=== PATIENT | male | born 1940 | race Caucasian/White ===

== ENCOUNTER 2016-11-09 08:20 | Outpatient (CLI) | payer MEDICARE, OTHER ==
[2016-11-09 14:35] LABS: CHOL/HDL RATIO 4.1 (<5.0); CHOLESTEROL 118 mg/dL; HDL CHOLESTEROL 29 mg/dL; LDL/HDL RATIO 0.8 (<3.6); TRIGLYCERIDES 332 mg/dL; VLDL CHOLESTEROL 66 mg/dL
== END 2016-11-09 08:21 | disposition home or self-care (01) ==
LOC: LAB.F 08:20
PROVIDERS: ATTEND Internal Medicine Cardiovascular Disease
DX: E78.5 Hyperlipidemia, unspecified (principal)
CPT/HCPCS: 36415; 80061

== ENCOUNTER 2018-05-24 14:48 | Outpatient (CLI) | payer MEDICARE, OTHER ==
--- NOTE | 2018-05-25 11:21 | Ultrasound Report ---
Reason: RETINAL HEMORRHAGE, LEFT EYE Procedure Date: 05/24/2018 Accession Number: [id number] / [id number] Procedure: US - Carotid Doppler Complete CPT Code: FULL RESULT: EXAM: BILATERAL CAROTID AND VERTEBRAL ARTERY DUPLEX DOPPLER ULTRASOUND: EXAM DATE: 05/24/2018 03:11 PM CLINICAL HISTORY: Retinal hemorrhage, left eye. COMPARISON: None. TECHNIQUE: Grayscale imaging, color Doppler, and duplex spectral Doppler were used to evaluate the carotid and vertebral arteries bilaterally. Static images were obtained. FINDINGS: Visually a small amount of predominantly echogenic plaque is seen in the regions of bifurcation bilaterally with a small amount of intimal thickening. No significant plaque is identified in the right or left common or internal carotid arteries. Normal antegrade flow is present in bilateral vertebral arteries. VELOCITIES (cm/sec): Right CCA mid: PSV 56.0 cm/sec CCA dist: PSV 66.7 cm/sec ICA prox: PSV 100 cm/sec, EDV 27.4 cm/sec ICA mid: PSV 82.3 cm/sec, EDV 26.8 cm/sec ICA dist: PSV 119.6 cm/sec, EDV 30.1 cm/sec ECA: PSV 107.8 cm/sec Vert: PSV 38.1 cm/sec ICA/CCA: 1.79 Left CCA mid: PSV 126.2 cm/sec CCA dist: PSV 121 cm/sec ICA prox: PSV 57.5 cm/sec, EDV 19.5 cm/sec ICA mid: PSV 75.6 cm/sec, EDV 24.7 cm/sec ICA dist: PSV 66.7 cm/sec, EDV 17.4 cm/sec ECA: PSV 107.5 cm/sec Vert: PSV 45.7 cm/sec ICA/CCA: 0.6 ICA diameter stenosis: Right: <50% by velocity and <70% by NASCET criteria. Left: <50% by velocity and <70% by NASCET criteria. IMPRESSION: 1. No significant bilateral carotid artery plaquing. 2. In the right carotid artery there are no elevated carotid artery velocities to suggest hemodynamically significant stenosis. 3. In the left carotid artery there are no elevated carotid artery velocities to suggest hemodynamically significant stenosis. 4. Normal antegrade flow is present in bilateral vertebral arteries. General Recommendations: Stenosis =50% ICA - Follow-up ultrasound 6-12 months Stenosis <50% ICA - High Risk Patient with plaque - Follow-up ultrasound 1-2 years Normal Study but High Risk Patient - Follow-up ultrasound 3-5 years Management recommendations and diagnostic criteria are based on current IAC endorsed standards in Carotid Artery Stenosis: Grayscale and Doppler Ultrasound Diagnosis. Validated velocity measurements with angiographic measurements and velocity criteria are extrapolated from diameter data as defined by the Society of Radiologists in Ultrasound Consensus Conference Radiology 2003; 229;340-346. RADIA
== END 2018-05-24 14:49 | disposition home or self-care (01) ==
LOC: DI 14:48
PROVIDERS: ATTEND Ophthalmology
DX: H35.62 Retinal hemorrhage, left eye (principal)
CPT/HCPCS: 93880

== ENCOUNTER 2018-08-15 22:22 | Observation (INO) | payer MEDICARE, OTHER ==
[2018-08-15 22:54] LABS: BASOPHILS # (AUTO) 0.1 10^3/uL (0.0-0.1); BASOPHILS % (AUTO) 1.1 %; EOSINOPHILS # (AUTO) 0.2 10^3/uL (0.0-0.7); EOSINOPHILS % (AUTO) 3.9 %; HGB - HEMOGLOBIN 13.5 g/dL (14.0-18.0); LYMPHOCYTES # (AUTO) 0.5 10^3/uL (1.5-3.5); LYMPHOCYTES % (AUTO) 7.8 %; MEAN CORPUSCULAR HEMOGLOBIN 33.3 pg (27.0-31.0); MEAN CORPUSCULAR HGB CONC 34.5 g/dL (32.0-36.0); MEAN CORPUSCULAR VOLUME 96.3 fL (80.0-94.0); MEAN PLATELET VOLUME 9.5 fL (7.4-11.4); MONOCYTES # (AUTO) 0.5 10^3/uL (0.0-1.0); MONOCYTES % (AUTO) 7.8 %; NEUTROPHILS # (AUTO) 4.9 10^3/uL (1.5-6.6); NEUTROPHILS % (AUTO) 79.4 %; PLT - PLATELET COUNT 54 10^3/uL (130-450); RED BLOOD COUNT 4.06 10^6/uL (4.70-6.10); RED CELL DISTRIBUTION WIDTH 13.4 % (12.0-15.0); WHITE BLOOD COUNT 6.1 x10^3/uL (4.8-10.8)
[2018-08-15 23:02] LABS: ALBUMIN 4.4 g/dL (3.2-5.5); ALBUMIN/GLOBULIN RATIO 1.6 (1.0-2.2); BILIRUBIN,TOTAL 1.1 mg/dL (0.2-1.0); CALCIUM 9.2 mg/dL (8.5-10.3); CREATININE 1.5 mg/dL (0.6-1.2); TOTAL PROTEIN 7.2 g/dL (6.7-8.2)
[2018-08-16 01:12] LABS: BILIRUBIN,URINE NEGATIVE (NEGATIVE); GLUCOSE, URINE (UA) >=1000 mg/dL (NEGATIVE); KETONES,URINE (UA) NEGATIVE (NEGATIVE); LEUKOCYTE ESTERASE, URINE NEGATIVE (NEGATIVE); NITRITE,URINE NEGATIVE (NEGATIVE); OCCULT BLOOD,URINE NEGATIVE (NEGATIVE); PH,URINE 5.5 PH (5.0-7.5); PROTEIN,URINE NEGATIVE (NEGATIVE); UROBILINOGEN,URINE 0.2 (NORMAL) E.U./dL (NORMAL)
[2018-08-16 01:17] LABS: CLARITY,URINE CLEAR (CLEAR)
[2018-08-16] MEDS ORDERED: SODIUM CHLORIDE 0.9% 1,000 ML IV ONE (01:28)
--- NOTE | 2018-08-16 01:31 | ED Physician Documentation ---
PD HPI ABD PAIN - Stated complaint Stated Complaint: ABD PX - Chief complaint Chief Complaint: Abd Pain - History obtained from History obtained from: Patient, Family - History of Present Illness Timing - onset: Today Timing - duration: Hours Timing - details: Abrupt onset, Still present Quality: Sharp, Pain Location: Epigastric Improved by: Laying still Worsened by: Position, Palpation Associated symptoms: Nausea, Vomiting Similar symptoms before: Has not had sx before Recently seen: Not recently seen - Additional information Additional information: 78-year-old male with a history of thrombocytopenia and diabetes has developed acute abdominal pain and bloating after eating. He has a sharp pain that is cramping in nature and comes in waves. The pain is severe. He has not had symptoms similar to this ever. He is nauseated. He has had remote surgery to his appendix which was ruptured with peritonitis. Review of Systems Constitutional: denies: Fever, Chills, Myalgias Eyes: denies: Decreased vision Ears: denies: Ear pain Nose: denies: Rhinorrhea / runny nose, Congestion Throat: denies: Sore throat Cardiac: denies: Chest pain / pressure, Palpitations Respiratory: denies: Dyspnea, Cough GI: reports: Abdominal Pain, Abdominal Swelling, Nausea, Vomiting : denies: Dysuria, Frequency Skin: denies: Rash Musculoskeletal: denies: Neck pain, Back pain Neurologic: denies: Generalized weakness, Focal weakness, Numbness PD PAST MEDICAL HISTORY - Past Medical History Cardiovascular: Hypertension, High cholesterol Respiratory: Asthma Endocrine/Autoimmune: Type 2 diabetes GI: None : Benign prostate hypertrophy, Kidney stones HEENT: None Musculoskeletal: Osteoarthritis - Past Surgical History General: Appendectomy, Colonoscopy - Present Medications Home Medications: Ambulatory Orders Medication Instructions Recorded Confirmed Albuterol Sulfate [Proventil Hfa] 60 puffs IH DAILY PRN 11/18/12 08/15/18 Lisinopril [Zestril] 20 mg PO DAILY 11/18/12 08/15/18 Ranitidine HCl [Zantac 75] 150 mg PO HS 11/18/12 08/15/18 Tamsulosin [Flomax] 0.4 mg PO BID 11/18/12 08/15/18 Budesonide [Pulmicort] 1 puffs INH ONCE PRN 01/01/14 08/15/18 Fluticasone [Flonase] 1 spray INH ONCE PRN 01/01/14 08/15/18 Dhiroyfg-Inohdyr-Nzys 149-Hyal 1 tab ORAL DAILY 01/01/14 08/15/18 [Glucosamine Chondroitin Complx] B12/Levomefolate Calcium/B-6 1 each PO DAILY 04/23/14 08/15/18 [Folbic Rf Tablet] Ascorbic Acid Chew [Vitamin C] 500 mg PO DAILY 12/03/14 08/15/18 Lovastatin 10 mg PO DAILY 09/09/15 08/15/18 Canagliflozin/Metformin HCl 1 each PO DAILY 12/28/16 08/15/18 [Invokamet 150-1,000 mg Tablet] metFORMIN [Glucophage] 1,000 mg PO BID 08/15/18 08/15/18 - Allergies Allergies/Adverse Reactions: Allergies Allergy/AdvReac Type Severity Reaction Status Date / Time No Known Drug Allergies Allergy Verified 08/15/18 22:29 - Social History Smoking Status: Never smoker PD ED PE NORMAL - Vitals Vital signs reviewed: Yes (hypertensive mild) - General General: Alert and oriented X 3, No acute distress, Well developed/nourished - HEENT HEENT: Atraumatic, PERRL, EOMI - Neck Neck: Supple, no meningeal sign - Cardiac Cardiac: RRR, No murmur - Respiratory Respiratory: No respiratory distress, Clear bilaterally - Abdomen Abdomen: Soft, Other (The abdomen is distended and generally tender. Bowel sounds are tinkling. ) - Back Back: No CVA TTP, No spinal TTP - Derm Derm: Normal color, Warm and dry, No rash - Extremities Extremities: No deformity, No edema - Neuro Neuro: Alert and oriented X 3, transportation aide 2-12 intact, No motor deficit, No sensory deficit, Normal speech Eye Opening: Spontaneous Motor: Obeys Commands Verbal: Oriented GCS Score: 15 - Psych Psych: Normal mood, Normal affect Results - Vitals Vitals: Vital Signs - 24 hr 08/15/18 08/16/18 22:25 00:59 Temperature 36.5 C 36.2 C L Heart Rate 59 L 86 Respiratory 16 14 Rate Blood Pressure 145/60 H 122/52 L O2 Saturation 98 96 Oxygen O2 Source Room air - Labs Labs: Laboratory Tests 08/15/18 08/15/18 08/16/18 22:40 22:40 00:45 WBC 6.1 RBC 4.06 L Hgb 13.5 L Hct 39.1 L MCV 96.3 H MCH 33.3 H MCHC 34.5 RDW 13.4 Plt Count 54 L MPV 9.5 Neut # (Auto) 4.9 Lymph # (Auto) 0.5 L Maverick # (Auto) 0.5 Eos # (Auto) 0.2 Baso # (Auto) 0.1 Absolute Nucleated RBC 0.00 Nucleated RBC % 0.0 Sodium 139 Potassium 4.4 Chloride 102 Carbon Dioxide 26 Anion Gap 11.0 BUN 22 H Creatinine 1.5 H Estimated GFR (MDRD) 46 L Glucose 236 H Calcium 9.2 Total Bilirubin 1.1 H AST 23 ALT 40 Alkaline Phosphatase 57 Total Protein 7.2 Albumin 4.4 Globulin 2.8 Albumin/Globulin Ratio 1.6 Lipase 121 H Urine Color YELLOW Urine Clarity CLEAR Urine pH 5.5 Ur Specific [place] 1.010 Urine Protein NEGATIVE Urine Glucose (UA) >=1000 H Urine Ketones NEGATIVE Urine Occult Blood NEGATIVE Urine Nitrite NEGATIVE Urine Bilirubin NEGATIVE Urine Urobilinogen 0.2 (NORMAL) Ur Leukocyte Esterase NEGATIVE Ur Microscopic Review NOT INDICATED Urine Culture Comments NOT INDICATED - Rads (name of study) CT abd/pel with Radiology: Prelim report reviewed (Impression: 1. Mid small bowel obstruction with transition in the right paramedian upper pelvis, probably due to an adhesion. Mild mesenteric edema. 2 Abnormal pancreatic body and tail with ductal dilation and/or small cystic foci measuring up to 2 cm. No definite obstructing solid mass seen and this may be related to previous episode of inflammation and postinflammatory stricturing. Nonemergent follow-up with pancreatic MRI MRCP suggested for follow-up within the next 6 months. 3 Cholelithiasis.4 Cardiomegaly and severe coronary calcifications. 5Moderately enlarged prostate with median lobe hypertrophy indenting into the inferior aspect of the bladder. 6 Moderate atherosclerotic disease in the aorta and branches. 7 Suspect ankylosing spondylitis.), EMP read indepedently, See rad report PD MEDICAL DECISION MAKING - ED course Complexity details: reviewed results, re-evaluated patient, considered differential, d/w patient, d/w family, d/w customer service and sales consultant (Mcguire surgery recommends NG tube, analgesia and fluids. ) ED course: 78-year-old diabetic male on Jardiance who appears dehydrated on initial evaluation and who has an elevated lipase seems initially to have some improvement in his pain. However after he returns from CT scan he is vomiting pain continues and it is obvious that he has not resolved his illness in the time he has been waiting here in the emergency department. He appears to have bowel obstruction secondary to adhesions and he has remote history of peritonitis in the area of obstruction. Departure - Departure Disposition: 66 [facility] DC/Hiren Clinical Impression: Small bowel obstruction
[2018-08-16] MEDS ORDERED: IOVERSOL 320 100 ML VIAL IVP ONE ×2 (01:49→02:08)
--- NOTE | 2018-08-16 02:34 | CT Report ---
Reason: epigastric pain Procedure Date: 08/16/2018 Accession Number: [id number] / [id number] Procedure: CT - Abdomen/Pelvis W CPT Code: FULL RESULT: EXAM: CT ABDOMEN AND PELVIS EXAM DATE: 08/16/2018 02:09 AM. CLINICAL HISTORY: Epigastric pain. COMPARISONS: ABD-DIFFICULT 01/09/2014 8:24 AM. TECHNIQUE: Routine helical CT imaging was performed through the abdomen and pelvis. IV contrast: Yes. Enteric contrast: No. Reconstructions: Coronal and sagittal. In accordance with CT protocol optimization, one or more of the following dose reduction techniques were utilized for this exam: automated exposure control, adjustment of mA and/or KV based on patient size, or use of iterative reconstructive technique. FINDINGS: Lung Bases: Global cardiomegaly. Severe coronary calcifications. Liver: Unremarkable. No suspicious masses. Gallbladder/Bile Ducts: Tiny calcified gallstone, otherwise unremarkable. Spleen: Unremarkable. Pancreas: Cystic foci and/or ductal dilatation in the pancreatic body and tail measuring up to 2.3 x 1.4 cm on image 30 series 4. No definite solid mass. No inflammatory process seen. Adrenal Glands: Unremarkable. Kidneys: Unremarkable. No suspicious masses or hydronephrosis. Peritoneal Cavity/Bowel: Mid small bowel obstruction with transition in the right paramedian upper pelvis, probably due to an adhesion. Mild mesenteric edema adjacent to the dilated loops of proximal bowel. No gross bowel wall thickening or free air. Pelvic Organs: Moderately enlarged prostate with median lobe hypertrophy indenting into the inferior aspect of the bladder. The bladder otherwise appears unremarkable. Vasculature: Moderate atherosclerotic disease of the aorta and branches. No aneurysm seen. Bones: No acute or aggressive appearing abnormality. Diffuse bridging syndesmophyte/osteophytes throughout the thoracic spine. Moderate L5-S1 disk level degenerative changes. Partial ankylosis of the sacroiliac joints. Other: None. IMPRESSION: 1. Mid small bowel obstruction with transition in the right paramedian upper pelvis, probably due to an adhesion. Mild mesenteric edema. 2. Abnormal pancreatic body and tail with ductal dilatation and/or small cystic foci measuring up to 2 cm. No definite obstructing solid mass seen and this may be related to previous episodes of inflammation and post-inflammatory stricturing. Nonemergent follow-up pancreatic MRI/MRCP suggested for follow-up within the next 6 months. 3. Cholelithiasis. 4. Cardiomegaly and severe coronary calcifications. 5. Moderately enlarged prostate with median lobe hypertrophy indenting into the inferior aspect of the bladder. 6. Moderate atherosclerotic disease of the aorta and branches. 7. Suspect ankylosing spondylitis. RADIA
[2018-08-16] MEDS ORDERED: ONDANSETRON 4 MG/2 ML VIAL IVP STA (02:48)
[2018-08-16] MEDS ORDERED: HYDROmorphone 1 MG/ML CARPUJECT IVP STA (02:48)
[2018-08-16] MEDS ORDERED: ONDANSETRON 4 MG/2 ML VIAL IVP PRN (03:10)
[2018-08-16] MEDS ORDERED: SODIUM CHLORIDE FLUSH 0.9% 10 ML SYRINGE IVP PRN (03:10)
--- NOTE | 2018-08-16 03:40 | HISTORY & PHYSICAL EXAMINATION ---
Chief Complaint - Chief Complaint Chief Complaint: abdominal pain History of Present Illness - Admitted From Admitted From:: [facility] ED - History Obtained From Records Reviewed: yes History obtained from: patient and spouse - History of Present Illness HPI Comment/Other: Patient seen on 08/16/18 at 03:30 am Patient is a 78 y/o male who presented to the ED with complain of mid-abdominal pain which started around 8:30pm on 08/15/18 shortly after dinner. He describes it a a fluctuating in intensity but currently rated at a 10/10. He denies any previous occurence. Work up in the ED included a CT of the abd/pelvis which showed a mild small bowel obstruction. His last bowel movement was around lunch time on 08/15/18. He denies chest pain, GRICELDA, fever or chills. He vomited once upon presentation to the ED. As a result of his presentation, he is being admitted for further management. Dr Viet Mcguire (General Surgery) was consulted by the ED. History - Past Medical History Cardiovascular: reports: Hypertension, High cholesterol, Coronary artery disease Respiratory: reports: Asthma Endocrine/Autoimmune: reports: Type 2 diabetes GI: reports: None : reports: Benign prostate hypertrophy, Kidney stones HEENT: reports: None Musculoskeletal: reports: Osteoarthritis MRSA Hx?: No Other Past Medical History: Thrombocytopenia - Past Surgical History General: reports: Appendectomy, Colonoscopy Cardiovascular: reports: Coronary stent - Family & Social History Family History: Mother: , CVA/TIA (mother: massive CVA in her 70's), Diabetes, Type 2, Hypertension (Extensive family history of hypertension), Father: , Cancer (prostate cancer: at 102), Other family: Hypertension Family History Comment/Other: Has 9 siblings Living arrangement: At home Living Situation: With spouse/s.o. Social History Notes: Denies Hx of alcohol, tobacco or illicit drug use - POLST Patient has POLST: No POLST Status: Full Code Meds/Allgy - Home Medications Home Medications: Ambulatory Orders Medication Instructions Recorded Confirmed Albuterol Sulfate [Proventil Hfa] 60 puffs IH DAILY PRN 11/18/12 08/15/18 Lisinopril [Zestril] 20 mg PO DAILY 11/18/12 08/15/18 Ranitidine HCl [Zantac 75] 150 mg PO HS 11/18/12 08/15/18 Tamsulosin [Flomax] 0.4 mg PO BID 11/18/12 08/15/18 Budesonide [Pulmicort] 1 puffs INH ONCE PRN 01/01/14 08/15/18 Fluticasone [Flonase] 1 spray INH ONCE PRN 01/01/14 08/15/18 Awqxiscs-Culqiep-Bkxt 149-Hyal 1 tab ORAL DAILY 01/01/14 08/15/18 [Glucosamine Chondroitin Complx] B12/Levomefolate Calcium/B-6 1 each PO DAILY 04/23/14 08/15/18 [Folbic Rf Tablet] Ascorbic Acid Chew [Vitamin C] 500 mg PO DAILY 12/03/14 08/15/18 Lovastatin 10 mg PO DAILY 09/09/15 08/15/18 Canagliflozin/Metformin HCl 1 each PO DAILY 12/28/16 08/15/18 [Invokamet 150-1,000 mg Tablet] metFORMIN [Glucophage] 1,000 mg PO BID 08/15/18 08/15/18 - Allergies Allergies/Adverse Reactions: Allergies Allergy/AdvReac Type Severity Reaction Status Date / Time No Known Drug Allergies Allergy Verified 08/15/18 22:29 Review of Systems - Constitutional Constitutional: denies: Chills, Malaise, Weakness - Eyes Eyes: denies: Blurred vision, Vision loss, Dipolpia - Ears, Nose & Throat Ears, Nose & Throat: denies: Tinnitus, Vertigo, Sore throat - Cardiovascular Cariovascular: denies: Irregular heart rate, Palpitations, Chest pain, Edema, Lightheadedness, Syncope, Exertional dyspnea - Respiratory Respiratory: denies: Sputum production, Wheezing, SOB at rest, SOB with exertion - Gastrointestinal Gastrointestinal: reports: Abdominal pain, Nausea, Vomiting. denies: Abdominal distention, Constipation, Diarrhea, Black stools - Genitourinary Genitourinary: denies: Dysuria, Frequency, Urgency, Hematuria - Musculoskeletal Musculoskeletal: denies: Muscle pain, Back pain, Muscle aches, Stiffness - Integumentary Integumentary: denies: Rash, Pruritis, Lesions, Dryness - Neurological Neurological: denies: General weakness, Focal weakness, Headache, Dizziness, Numbness - Psychiatric Psychiatric: denies: Depression, Anxiety - Endocrine Endocrine: denies: Polyuria, Polydypsia - Hematologic/Lymphatic Hematologic/Lymphatic: reports: Bleeding tendencies (chronic thrombocytopenia). denies: Anemia, Bruising Prior Level of Functionality: Patient is independent of activities of daily living Exam - Vital Signs Vital Signs: Vital Signs x48h Temp Pulse Resp BP Pulse Ox 08/16/18 00:59 36.2 C L 86 14 122/52 L 96 08/15/18 22:25 36.5 C 59 L 16 145/60 H 98 - Physical Exam General Appearance: positive: Alert, Moderate distress Eyes Bilateral: positive: Normal inspection, PERRL, EOMI ENT: positive: ENT inspection nml, No signs of dehydration Neck: positive: Nml inspection, No JVD, Trachea midline Respiratory: positive: Chest non-tender, No respiratory distress, Breath sounds nml. negative: Wheezes, Rales, Rhonchi Cardiovascular: positive: Regular rate & rhythm, No murmur Abdomen: positive: Nml bowel sounds, No distention, Tenderness. negative: Guarding, Rebound Back: positive: Nml inspection Skin: positive: Color nml Extremities: positive: Non-tender, Full ROM, Nml appearance Neurologic/Psychiatric: positive: Oriented x3, CN's nml (2-12), Motor nml, Sensation nml Conclusion/Plan - Problem List (1) Small bowel obstruction Conclusion/Plan: Mild. NPO. Iv hydration. Pain management Will not do NG tube due to platelet count of 54. Will consider gastrograffin challenge later today Dr Viet Mcguire (Gen Surg) was consulted by the ED (2) Type II diabetes mellitus Conclusion/Plan: Will hold metformin. On jardance Accu checks SSI (3) Hyperlipidemia Conclusion/Plan: On atorvastatin (4) Hx of coronary artery disease Conclusion/Plan: s/p pI w/ stents Onplavix and metoprolol (5) Thrombocytopenia Conclusion/Plan: Sees Dr Fish at the [facility]. Last seen 08/15/18. Patient stable. No active change at the moment - Lab Results Fish Bones: 08/15/18 22:40 08/15/18 22:40 Core Measures - Anticipated LOS I expect patient to be DC'd or transferred within 96 hours.: Yes - DVT/VTE - Prophylaxis VTE/DVT Device ordered at admit?: Yes Not Ordered - Medical Reason: Contraindicated (plt 54)
[2018-08-16] MEDS ORDERED: SODIUM CHLORIDE 0.9% 1,000 ML IV SCH (04:00)
[2018-08-16] MEDS: SODIUM CHLORIDE FLUSH 0.9% 10 ML SYRINGE IVP SCH ×2 (04:33→07:07)
[2018-08-16] MEDS ORDERED: MORPHINE 2 MG/ML SYRINGE IVP PRN (05:00)
[2018-08-16 05:58] LABS: BASOPHILS % (AUTO) 0.4 %; EOSINOPHILS % (AUTO) 0.2 %; HGB - HEMOGLOBIN 12.7 g/dL (14.0-18.0); LYMPHOCYTES # (AUTO) 0.2 10^3/uL (1.5-3.5); LYMPHOCYTES % (AUTO) 2.5 %; MEAN CORPUSCULAR HEMOGLOBIN 33.5 pg (27.0-31.0); MEAN CORPUSCULAR HGB CONC 34.2 g/dL (32.0-36.0); MEAN CORPUSCULAR VOLUME 97.8 fL (80.0-94.0); MEAN PLATELET VOLUME 8.9 fL (7.4-11.4); MONOCYTES # (AUTO) 0.4 10^3/uL (0.0-1.0); NEUTROPHILS # (AUTO) 9.1 10^3/uL (1.5-6.6); NEUTROPHILS % (AUTO) 92.9 %; PLT - PLATELET COUNT 49 10^3/uL (130-450); RED BLOOD COUNT 3.79 10^6/uL (4.70-6.10); RED CELL DISTRIBUTION WIDTH 13.8 % (12.0-15.0); WHITE BLOOD COUNT 9.8 x10^3/uL (4.8-10.8)
[2018-08-16] MEDS ORDERED: INSULIN REGULAR HUMAN 100 UNIT/1 ML 10 ML MDV SUBQ SCH ×2 (06:00→07:00)
[2018-08-16 06:08] LABS: CALCIUM 8.6 mg/dL (8.5-10.3); CREATININE 1.3 mg/dL (0.6-1.2)
[2018-08-16] MEDS ORDERED: PANTOPRAZOLE 40 MG VIAL IVP SCH (07:00)
[2018-08-16] MEDS ORDERED: POLYETHYLENE GLYCOL 3350 17 GM PACKET PO SCH (09:00)
[2018-08-16] MEDS ORDERED: DIATR MEGLU/DIATRIZOATE SODIUM 120 ML BOTTLE PO SCH (10:04)
--- NOTE | 2018-08-16 13:13 | XRAY Report ---
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 COMPARISON: None. TECHNIQUE: 2 views. FINDINGS: Overlying ECG leads somewhat limit evaluation. Lung Bases: Unremarkable. Bowel Gas Pattern: Within normal limits. No dilated loops or abnormal fluid levels. Gas is seen in small and large bowel, nonobstructive bowel gas pattern. Free Air: Cannot be effectively evaluated on supine views. Other: Contrast is seen within the bladder. IMPRESSION: Normal abdominal radiograph. RADIA
--- NOTE | 2018-08-16 13:14 | XRAY Report ---
Reason: SBO- IMMEDIATE IMAGE Procedure Date: 08/16/2018 Accession Number: [id number] / [id number] Procedure: XR - No-Charge 1V Abdomen CPT Code: 30597 FULL RESULT: EXAM: ABDOMEN RADIOGRAPHY EXAM DATE: 08/16/2018 12:52 PM. CLINICAL HISTORY: Small bowel obstruction - immediate image. COMPARISON: None. TECHNIQUE: 2 views. FINDINGS: Lung Bases: Unremarkable. Bowel Gas Pattern: Within normal limits. No dilated loops or abnormal fluid levels. Contrast is seen in the stomach, duodenum and proximal jejunum. Gas is again noted in the large bowel. Free Air: None. Other: None. IMPRESSION: No obstruction. RADIA
[2018-08-16] MEDS ORDERED: CLOPIDOGREL 75 MG TABLET PO SCH (13:32)
[2018-08-16] MEDS: INSULIN ASPART 300 UNIT/3 ML PEN SUBQ SCH ×2 (13:41→17:47)
[2018-08-16 15:25] LABS: HB2 TOTAL 12.7 g/dL; HEMOGLOBIN A1C 0.87 g/dL; HEMOGLOBIN A1C % 8.4 % (4.6-6.2)
--- NOTE | 2018-08-16 15:46 | Discharge Plan ---
Discharge Plan Disposition: 01 Home, Self Care Condition: Good Prescriptions: Wheat Dextrin [Benefiber] 1 each PO DAILY #30 packet Diet: Soft Activity Restrictions: Activity as Tolerated Shower Restrictions: No Weight Bearing: Full Weight Health Concerns: Underlying cardiac disease, but you are well taken care of by your specialist. Plan of Treatment: To prevent such episodes, avoid un-chewed nuts, raw or uncooked vegetables, stick wit soft foods. Care Goals: Goals are to prevent recurrence, so maintain a healthy diet, take daily bene- fiber, stay active each day (walking). Additional Instructions or Follow Up instructions: You were admitted for a small bowel obstruction that was noted on imaging. You underwent a gastro-grafin challenge which showed a resolution of this condition. A general surgery consult was made, with Dr. Viet Mcguire. I spoke to him and he suggests the above diet restrictions with daily benefiber. Please follow up with your PCP within one week. No Smoking: If you smoke, Please STOP! Call for help. Follow-up with: Maged Oliver MD [Primary Care Provider] -
--- NOTE | 2018-08-16 17:24 | XRAY Report ---
Reason: SBO- 4 HOUR FILM Procedure Date: 08/16/2018 Accession Number: [id number] / [id number] Procedure: XR - No-Charge 1V Abdomen CPT Code: 85505 FULL RESULT: EXAM: ABDOMEN RADIOGRAPHY EXAM DATE: 08/16/2018 04:56 PM. CLINICAL HISTORY: SBO- 4 HOUR FILM. COMPARISON: NO CHARGE 1V ABDOMEN 08/16/2018 12:10 PM. TECHNIQUE: One view, 4 hour images after given oral Gastrografin. FINDINGS: Contrast is seen throughout the colon and into the rectum. There is contrast seen in small bowel loops in the right side of the abdomen and in the lower abdomen and pelvis. No dilated bowel loops are seen. IMPRESSION: Contrast is seen in the colon. No evidence for small bowel obstruction. No dilated bowel loops are seen. RADIA
--- NOTE | 2018-08-16 18:15 | DISCHARGE SUMMARY ---
"Discharge Summary Admit Date: 08/16/18 Discharge Date: 08/16/18 Discharging Provider: BLAYNE Pike Primary Care Provider: Maged Oliver Code Status: Attempt Resuscitation Condition at Discharge: Good Discharge Disposition: 01 Home, Self Care - DIAGNOSES Admission Diagnoses: Small bowel obstruction Type II diabetes mellitus Hyperlipidemia Hx of coronary artery disease Thrombocytopenia Discharge Diagnoses with Status of Each Condition: Small bowel obstruction- resolved after a Gastro-grafin challenge Abdominal pain- resolved Type II diabetes mellitus- chronic, stable Hyperlipidemia- chronic, stable Hx of coronary artery disease -chronic, stable Thrombocytopenia-chronic, stable BPH -chronic, stable GERD -chronic, stable COPD -chronic, stable constipation- improved, continue daily benefiber at home stented coronary artery-chronic, stable - HPI History of Present Illness: HPI per Dr. Watkins: Patient seen on 08/16/18 at 03:30 am Patient is a 78 y/o male who presented to the ED with complain of mid-abdominal pain which started around 8:30pm on 08/15/18 shortly after dinner. He describes it a a fluctuating in intensity but currently rated at a 10/10. He denies any previous occurence. Work up in the ED included a CT of the abd/pelvis which showed a mild small bowel obstruction. His last bowel movement was around lunch time on 08/15/18. He denies chest pain, GRICELDA, fever or chills. He vomited once upon presentation to the ED. As a result of his presentation, he is being admitted for further management. Dr Viet Mcguire (General Surgery) was consulted by the ED. - CONSULTS | PROCEDURES Consultations: General surgery- Dr. Viet Mcguire Procedures: None, gastro-grafin challenge with resolution of condition. - HOSPITAL COURSE Hospital Course: The patient had a full resolution of his SBO both on imaging and on physical exam. He no longer had abdominal pain. He was tolerating meals, and moving his bowels upon discharge. It was recommended that he continue to use Benefiber daily to prevent further episodes and avoid raw veggies. He was medically stable and discharged home with his . - ALLERGIES Allergies/Adverse Reactions: Allergies Allergy/AdvReac Type Severity Reaction Status Date / Time No Known Drug Allergies Allergy Verified 08/15/18 22:29 - MEDICATIONS Home Medications: Ambulatory Orders Medication Instructions Recorded Confirmed Albuterol Sulfate [Proventil Hfa 1 puffs PO DAILY PRN 11/18/12 08/16/18 Inhaler] Lisinopril [Zestril] 20 mg PO DAILY 11/18/12 08/16/18 Tamsulosin [Flomax] 0.4 mg PO BID 11/18/12 08/16/18 metFORMIN [Glucophage] 1,000 mg PO BID 08/15/18 08/16/18 Ascorbic Acid [Vitamin C] 1,000 mg PO DAILY 08/16/18 08/16/18 Aspirin [Aspirin EC] 81 mg PO DAILY 08/16/18 08/16/18 Atorvastatin Calcium 40 mg PO DAILY PM 08/16/18 08/16/18 Budesonide [Pulmicort] 1 puffs INH DAILY 08/16/18 08/16/18 Clopidogrel [Plavix] 75 mg PO DAILY 08/16/18 08/16/18 Cyanocobalamin (Vitamin B-12) 1,000 mcg PO DAILY 08/16/18 08/16/18 [Vitamin B-12] Empagliflozin [Jardiance] 25 mg PO DAILY 08/16/18 08/16/18 Fexofenadine HCl [Erica Allergy] 180 mg PO DAILY PRN 08/16/18 08/16/18 Fexofenadine HCl [Erica Allergy] 180 mg PO DAILY PRN 08/16/18 08/16/18 Fluticasone [Flonase] 1 puffs PO DAILY PRN 08/16/18 08/16/18 Glucos Sul 2Kcl/MSM/Chond/C/Mn 1 cap PO DAILY 08/16/18 08/16/18 [Glucosamine Chondroitin Cap] Metoprolol Succinate 25 mg PO DAILY 08/16/18 08/16/18 Wheat Dextrin [Benefiber] 1 each PO DAILY #30 packet 08/16/18 amLODIPine [Norvasc] 5 mg PO DAILY PM 08/16/18 08/16/18 - PHYSICAL EXAM AT DISCHARGE General Appearance: positive: No acute distress, Alert Eyes Bilateral: positive: PERRL ENT: positive: Pharynx nml, No signs of dehydration Neck: positive: Thyroid nml, No JVD, Trachea midline Respiratory: positive: Chest non-tender, No respiratory distress, Breath sounds nml Cardiovascular: positive: Regular rate & rhythm, No gallop, Systolic murmur Peripheral Pulses: positive: 2+ Abdomen: positive: Non-tender, Nml bowel sounds, Hepatomegaly, Other (rounded, firm-baseline, ) Back: positive: Nml inspection Skin: positive: Color nml, No rash, Warm, Dry Extremities: positive: Non-tender, Full ROM, Nml appearance, No pedal edema Neurologic/Psychiatric: positive: Oriented x3, CN's nml (2-12), Motor nml, Sensation nml, Mood/affect nml Reflexes: Bicep (R): 3+, Bicep (L): 3+ - LABS Result Diagrams: 08/16/18 05:44 08/16/18 05:44 - FOLLOW UP Follow Up: See your PCP within one week, return to the ED if you have more abdominal pain. Continue daily benefiber. NO need to follow with Dr. Viet Mcguire, General surgery. - TIME SPENT Time Spent in Discharge (Minutes): 45"
[2018-08-16 18:20] VITALS: BP 156/57
[2018-08-16] MEDS ORDERED: metFORMIN 500 MG TABLET PO SCH (21:00)
[2018-08-16] MEDS ORDERED: ATORVASTATIN 40 MG TABLET PO SCH (21:00)
[2018-08-16] MEDS ORDERED: amLODIPine 5 MG TABLET PO SCH (21:00)
[2018-08-16] MEDS ORDERED: TAMSULOSIN 0.4 MG CAPSULE PO SCH (21:00)
[2018-08-17] MEDS ORDERED: METOPROLOL SUCCINATE 25 MG TABLET PO SCH (09:00)
[2018-08-17] MEDS ORDERED: GLUCOS SUL PO SCH (09:00)
[2018-08-17] MEDS ORDERED: CLOPIDOGREL 75 MG TABLET PO SCH (09:00)
[2018-08-17] MEDS ORDERED: [UNRECOGNIZED DRUG - OTHER] PO SCH (09:00)
[2018-08-17] MEDS ORDERED: BUDESONIDE 0.5 MG/2 ML NEB INH SCH (09:00)
[2018-08-17] MEDS ORDERED: EMPAGLIFLOZIN 25 MG PO SCH (09:00)
[2018-08-17] MEDS ORDERED: LISINOPRIL 20 MG TABLET PO SCH (09:00)
[2018-08-17] MEDS ORDERED: ASCORBIC ACID CHEW 500 MG TABLET PO SCH (09:00)
[2018-08-17] MEDS ORDERED: ASPIRIN EC 81 MG TABLET PO SCH (09:00)
[2018-08-17] MEDS ORDERED: ALBUTEROL NEB 2.5 MG/3 ML INH PRN (09:00)
[2018-08-17] MEDS ORDERED: CYANOCOBALAMIN 500 MCG TABLET PO SCH (09:00)
== END 2018-08-16 18:50 | disposition home or self-care (01) ==
LOC: ED 22:22 → MS2 08-16 03:11
PROVIDERS: ADMIT Internal Medicine; ATTEND Nurse Practitioner
DX: K56.609 Unspecified intestinal obstruction, unspecified as to partial versus complete obstruction (principal); E86.0 Dehydration; E11.9 Type 2 diabetes mellitus without complications; E78.5 Hyperlipidemia, unspecified; I25.10 Atherosclerotic heart disease of native coronary artery without angina pectoris; D69.6 Thrombocytopenia, unspecified; N40.0 Benign prostatic hyperplasia without lower urinary tract symptoms; K21.9 Gastro-esophageal reflux disease without esophagitis; J44.9 Chronic obstructive pulmonary disease, unspecified; K59.00 Constipation, unspecified; I10 Essential (primary) hypertension; M19.90 Unspecified osteoarthritis, unspecified site; K80.20 Calculus of gallbladder without cholecystitis without obstruction; R94.8 Abnormal results of function studies of other organs and systems; I70.0 Atherosclerosis of aorta; Z95.5 Presence of coronary angioplasty implant and graft; Z79.51 Long term (current) use of inhaled steroids; Z79.84 Long term (current) use of oral hypoglycemic drugs; Z87.442 Personal history of urinary calculi; D53.9 Nutritional anemia, unspecified; K76.0 Fatty (change of) liver, not elsewhere classified; Z79.02 Long term (current) use of antithrombotics/antiplatelets; R53.83 Other fatigue; Z79.899 Other long term (current) drug therapy; Z79.82 Long term (current) use of aspirin
CPT/HCPCS: 36415; 74177; 74250; 80048; 80053; 81003; 83036; 83690; 85025; 96361; 96374; 96375; 99214; 99284; 99285; A9270; G0378; G0463; J1170; J1815; Q9963; Q9967; 74018; 81001; 87086; 99211

== ENCOUNTER 2019-02-06 10:38 | Outpatient (CLI) | payer MEDICARE, OTHER ==
--- NOTE | 2019-02-06 12:56 | XRAY Report ---
Reason: OPEN BITE OF HAND Procedure Date: 02/06/2019 Accession Number: [id number] / [id number] Procedure: XRS - Hand 3 View RT CPT Code: Final Report FULL RESULT: EXAM: RIGHT HAND RADIOGRAPHY EXAM DATE: 02/06/2019 11:13 AM. CLINICAL HISTORY: OPEN BITE OF HAND. COMPARISON: XR Hand 3 views 06/09/2006 11:59 AM images and report from 06/09/2006.. TECHNIQUE: 3 views. FINDINGS: Bones: Normal. No fractures or bone lesions. Joints: Significant arthritic changes at the first CMC joint, third MCP joint and the IP joints. This is old. Soft Tissues: Vascular calcifications. IMPRESSION: 1. Some vascular calcifications. Significant arthritic change at the first CMC joint. Third MCP joint and IP joints also show some osteoarthritic change. 2. No evidence for radiopaque foreign material or soft tissue gas. No fractures. RADIA
--- NOTE | 2019-02-06 12:56 | XRAY Report ---
Reason: OPEN BITE OF RIGHT HAND Procedure Date: 02/06/2019 Accession Number: [id number] / [id number] Procedure: XRS - Wrist 4 View RT CPT Code: Final Report FULL RESULT: EXAM: RIGHT WRIST RADIOGRAPHY EXAM DATE: 02/06/2019 11:13 AM. CLINICAL HISTORY: Open bite of right hand. COMPARISON: HAND 3 VIEW RT 02/06/2019 11:19 AM XR HAND MIN 3 VIEWS 06/09/2006 11:59 AM images and report from [facility].. TECHNIQUE: 3 views. FINDINGS: Bones: Normal. No fractures or bone lesions. Joints: First CMC joint and radioscaphoid joint shows a moderate amount of arthritic change. There has been some progression since 2006. Soft Tissues: Some soft tissue swelling, no soft tissue gas. Benign vascular calcifications are present. IMPRESSION: 1. First CMC joint and radioscaphoid joints show moderate amount of osteoarthritic change. There has been some progression since the 2006 study. 2. Soft tissue swelling, no soft tissue gas. Benign-appearing vascular calcifications are present. RADIA
== END 2019-02-06 10:39 | disposition home or self-care (01) ==
LOC: DI.S 10:38
PROVIDERS: ATTEND Nurse Practitioner Family
DX: S61.451A Open bite of right hand, initial encounter (principal); M19.041 Primary osteoarthritis, right hand; M18.11 Unilateral primary osteoarthritis of first carpometacarpal joint, right hand; M19.031 Primary osteoarthritis, right wrist

== ENCOUNTER 2019-02-07 12:12 | Emergency (ER) | payer MEDICARE, OTHER ==
--- NOTE | 2019-02-07 13:37 | ED Physician Documentation ---
PD HPI ANIMAL BITE - Stated complaint Stated Complaint: R ARM INJURY - Chief complaint Chief Complaint: Wound - History obtained from History obtained from: Patient - History of Present Illness Location of injury(ies): Right hand Details of the event: Dog, Bite, Pet animal, Well appearing, Provoked, Animal can be observed Timing - onset: How many days ago (3) Timing - duration: Days (onset of redness and swelling day after bite (2 days ago) and seen in office yesterday with Rx of Augmentin. Patient says the progression of the redness halted but had not receded yet. Seen f/u in office today and referred to ER for "IV abx" since was still very red. Had xray in office without FB/fracture.) Timing - details: Gradual onset, Still present Improved by: Rest Worsened by: Moving, Palpating Associated symptoms: Swelling, Discolored. No: Weakness, Numbness Contributing factors: No: Immunocompromised Similar symptoms before: Has not had sx before Recently seen: Clinic Review of Systems Constitutional: denies: Fever, Chills, Myalgias GI: denies: Nausea, Vomiting Skin: reports: Lesions (puncture to dorsum hand near 2nd head) Neurologic: denies: Focal weakness, Numbness PD PAST MEDICAL HISTORY - Past Medical History Cardiovascular: Hypertension, High cholesterol Respiratory: Asthma Endocrine/Autoimmune: Type 2 diabetes GI: None : Benign prostate hypertrophy, Kidney stones HEENT: None Musculoskeletal: Osteoarthritis - Past Surgical History General: Appendectomy, Colonoscopy Ortho: Other Cardiovascular: Coronary stent - Present Medications Home Medications: Ambulatory Orders Medication Instructions Recorded Confirmed Albuterol Sulfate [Proventil Hfa 1 puffs PO DAILY PRN 11/18/12 08/16/18 Inhaler] Lisinopril [Zestril] 20 mg PO DAILY 11/18/12 08/16/18 Tamsulosin [Flomax] 0.4 mg PO BID 11/18/12 08/16/18 metFORMIN [Glucophage] 1,000 mg PO BID 08/15/18 08/16/18 Ascorbic Acid [Vitamin C] 1,000 mg PO DAILY 08/16/18 08/16/18 Aspirin [Aspirin EC] 81 mg PO DAILY 08/16/18 08/16/18 Atorvastatin Calcium 40 mg PO DAILY PM 08/16/18 08/16/18 Budesonide [Pulmicort] 1 puffs INH DAILY 08/16/18 08/16/18 Clopidogrel [Plavix] 75 mg PO DAILY 08/16/18 08/16/18 Cyanocobalamin (Vitamin B-12) 1,000 mcg PO DAILY 08/16/18 08/16/18 [Vitamin B-12] Empagliflozin [Jardiance] 25 mg PO DAILY 08/16/18 08/16/18 Fexofenadine HCl [Erica Allergy] 180 mg PO DAILY PRN 08/16/18 08/16/18 Fexofenadine HCl [Erica Allergy] 180 mg PO DAILY PRN 08/16/18 08/16/18 Fluticasone [Flonase] 1 puffs PO DAILY PRN 08/16/18 08/16/18 Glucos Sul 2Kcl/MSM/Chond/C/Mn 1 cap PO DAILY 08/16/18 08/16/18 [Glucosamine Chondroitin Cap] Metoprolol Succinate 25 mg PO DAILY 08/16/18 08/16/18 Wheat Dextrin [Benefiber] 1 each PO DAILY #30 packet 08/16/18 amLODIPine [Norvasc] 5 mg PO DAILY PM 08/16/18 08/16/18 - Allergies Allergies/Adverse Reactions: Allergies Allergy/AdvReac Type Severity Reaction Status Date / Time No Known Drug Allergies Allergy Verified 08/15/18 22:29 - Social History Does the pt smoke?: No Smoking Status: Never smoker Does the pt drink ETOH?: No Does the pt have substance abuse?: No - Immunizations Immunizations are current?: No Immunizations: TDAP >10years/unknown - POLST Patient has POLST: No POLST Status: Full Code PD ED PE NORMAL - Vitals Vital signs reviewed: Yes - General General: Alert and oriented X 3, No acute distress, Well developed/nourished - Cardiac Cardiac: RRR, No murmur - Respiratory Respiratory: Clear bilaterally - Derm Derm: Warm and dry, Other (right hand with redness and swelling dorsum, most ac utely at area of dogbite tooth puncture. Redness extends dorsum hand/wrsit to mid forearm. ) - Extremities Extremities: Other (stiff flex/ext of fingers due to swelling. He does not feel pain in forearm with finger movement. Normal color and cap refill in fingers. ) - Neuro Neuro: Alert and oriented X 3, No motor deficit, No sensory deficit, Normal speech Results - Vitals Vitals: Vital Signs - 24 hr 02/07/19 02/07/19 02/07/19 12:21 13:55 15:08 Temperature 37.2 C 37.3 C 37.3 C Heart Rate 71 54 L 66 Respiratory 18 18 22 Rate Blood Pressure 144/61 H 138/53 H 130/59 L O2 Saturation 94 98 97 02/07/19 15:59 Temperature Heart Rate 67 Respiratory 17 Rate Blood Pressure 130/62 O2 Saturation 98 Oxygen O2 Source Room air - Labs Labs: Laboratory Tests 02/07/19 02/07/19 14:00 14:00 WBC 10.1 RBC 3.66 L Hgb 12.2 L Hct 36.7 L MCV 100.3 H MCH 33.3 H MCHC 33.2 RDW 12.6 Plt Count 49 L MPV 12.1 H Neut # (Auto) 8.5 H Lymph # (Auto) 0.4 L Rusk # (Auto) 1.0 Eos # (Auto) 0.1 Baso # (Auto) 0.1 Absolute Nucleated RBC 0.00 Nucleated RBC % 0.0 Sodium 138 Potassium 4.2 Chloride 103 Carbon Dioxide 26 Anion Gap 9.0 BUN 23 H Creatinine 1.6 H Estimated GFR (MDRD) 42 L Glucose 267 H Calcium 8.9 - Rads (name of study) hand CT Radiology: Prelim report reviewed, Discussed with rads (loked at films with me. No signs of abscess, joint nor tendon involvement. No air in tissues. ), See rad report PD MEDICAL DECISION MAKING - ED course Complexity details: reviewed results (No deep structure involvement apparent at this time. ), re-evaluated patient, considered differential (concern for abscess or involvement to joint or tendons. Can get CT. He says the redness/swelling had not worsened since yesterday, so the abx Rx likely were starting to work ("putting on the brakes" of the infection progression). Can still give IV dose here and include some staph coverage. Most likely Pasteurella with the onset/progression. ), d/w patient Departure - Departure Disposition: 01 Home, Self Care Clinical Impression: Cellulitis of hand excluding fingers Dog bite, hand Qualifiers: Encounter type: initial encounter Laterality: right Qualified Code(s): S61.451A - Open bite of right hand, initial encounter Condition: Stable Record reviewed to determine appropriate education?: Yes Instructions: ED Infec Skin Cellulitis Follow-Up: Maged Oliver MD [Primary Care Provider] - Comments: Continue the current oral antibiotic twice daily. Elevate wrap and less use of the hand and wrist to help reduce swelling. Follow-up with your primary care in 1 to 2 days for recheck. Return to the ER tomorrow if this has not improved at all or is worsening. Return if general system symptoms such as fevers vomiting or general weakness. Your CT scan does not show any signs of abscess or involvement of the tendons or joint. Discharge Date/Time: 02/07/19 16:23
[2019-02-07] MEDS ORDERED: cefTRIAXone 1 GM VIAL IVP STA (13:56)
[2019-02-07] MEDS ORDERED: CLINDAMYCIN 600 MG/50 ML 50 ML IV ONE (13:56)
[2019-02-07] MEDS ORDERED: SODIUM CHLORIDE 0.9% 1,000 ML IV ONE (13:57)
[2019-02-07 14:18] LABS: BASOPHILS # (AUTO) 0.1 10^3/uL (0.0-0.1); BASOPHILS % (AUTO) 0.6 %; EOSINOPHILS # (AUTO) 0.1 10^3/uL (0.0-0.7); EOSINOPHILS % (AUTO) 1.2 %; HGB - HEMOGLOBIN 12.2 g/dL (14.0-18.0); LYMPHOCYTES # (AUTO) 0.4 10^3/uL (1.5-3.5); LYMPHOCYTES % (AUTO) 3.6 %; MEAN CORPUSCULAR HEMOGLOBIN 33.3 pg (27.0-31.0); MEAN CORPUSCULAR HGB CONC 33.2 g/dL (32.0-36.0); MEAN CORPUSCULAR VOLUME 100.3 fL (80.0-94.0); MEAN PLATELET VOLUME 12.1 fL (7.4-11.4); MONOCYTES % (AUTO) 10.3 %; NEUTROPHILS # (AUTO) 8.5 10^3/uL (1.5-6.6); NEUTROPHILS % (AUTO) 83.8 %; PLT - PLATELET COUNT 49 10^3/uL (130-450); RED BLOOD COUNT 3.66 10^6/uL (4.70-6.10); RED CELL DISTRIBUTION WIDTH 12.6 % (12.0-15.0); WHITE BLOOD COUNT 10.1 x10^3/uL (4.8-10.8)
[2019-02-07 14:33] LABS: CALCIUM 8.9 mg/dL (8.5-10.3); CREATININE 1.6 mg/dL (0.6-1.2)
[2019-02-07] MEDS ORDERED: IOVERSOL 320 100 ML VIAL IVP ONE ×2 (14:39→18:00)
--- NOTE | 2019-02-07 15:47 | CT Report ---
Reason: right hand dogbite; eval abscess/tenosyn Procedure Date: 02/07/2019 Accession Number: [id number] / [id number] Procedure: CT - UPPER EXTREMITY W - RT CPT Code: Final Report FULL RESULT: EXAM: RIGHT UPPER EXTREMITY CT WITH CONTRAST EXAM DATE: 02/07/2019 03:10 PM. CLINICAL HISTORY: Right hand dog bite; evaluate abscess/tenosynovitis. Hand and wrist pain. COMPARISON: X-rays of the hand and wrist from 02/06/2019 images and report what may be general. TECHNIQUE: Thin-section axial images were acquired of the upper extremity from the distal forearm to the fingers after administration of intravenous contrast. IV contrast: 80 mL Optiray 320, no reaction. Post-processing: Coronal and sagittal reformats. Other: None. In accordance with CT protocol optimization, one or more of the following dose reduction techniques were utilized for this exam: automated exposure control, adjustment of mA and/or KV based on patient size, or use of iterative reconstructive technique. FINDINGS: Bones: No fracture or bone lesion. No primitive or destructive changes. Joints: Significant osteoarthritic narrowing is seen at the second and third MCP joint, fourth PIP joint, first MCP joint and first IP joint. Musculature: Normal. No fatty atrophy. Other: Focal fluid collection at the dorsal aspect of the hand over the second MCP joint is 1.2 x 1.1 cm transversely and extends for a cephalocaudal distance of 2.2 cm. Series 4 image 151, series 13 image 47. Some surrounding streaking and stranding changes are also identified. This is adjacent to but appears separate from the second extensor mechanism. IMPRESSION: 1. There is a focal abscess over the dorsal aspect of the hand at the second MCP joint which is 1.2 x 1.1 cm transversely and extends for a cephalocaudal distance of 2.2 cm. Surrounding cellulitis is also present. This is adjacent to but does not appear to involve the second extensor mechanism. 2. Significant osteoarthritic change at the second and third MCP joint, first IP joint, fourth PIP joint and first MCP joint. RADIA
[2019-02-07 16:00] VITALS: BP 130/62
== END 2019-02-07 16:23 | disposition home or self-care (01) ==
LOC: ED 12:12
DX: L03.113 Cellulitis of right upper limb (principal); S61.451A Open bite of right hand, initial encounter; W54.0XXA Bitten by dog, initial encounter; I10 Essential (primary) hypertension; E11.9 Type 2 diabetes mellitus without complications; Z79.84 Long term (current) use of oral hypoglycemic drugs; Z79.02 Long term (current) use of antithrombotics/antiplatelets; Z79.82 Long term (current) use of aspirin
CPT/HCPCS: 36415; 73201; 80048; 85025; 96361; 96365; 96375; 99284; Q9967

== ENCOUNTER 2019-04-01 12:44 | Outpatient (CLI) | payer MEDICARE, OTHER ==
--- NOTE | 2019-04-02 00:57 | Ultrasound Report ---
Reason: BENIGN PROSTATIC HYPERTROPHY W/O OVERFLOW OBSTRUCT Procedure Date: 04/01/2019 Accession Number: [id number] / [id number] Procedure: US - Bladder CPT Code: Final Report FULL RESULT: EXAM: PELVIS ULTRASOUND, LIMITED EXAM DATE: 04/01/2019 03:13 PM. CLINICAL HISTORY: BENIGN PROSTATIC HYPERTROPHY W/O OVERFLOW OBSTRUCT. COMPARISON: None. TECHNIQUE: Real-time scanning was performed with static images obtained. FINDINGS: Bladder: The initial bladder volume was 254 mL. A 73.1 mL postvoid residual bladder volume is noted. Bilateral ureteral jets documented. Normal wall thickness. No masses evident. Other: Prostate measures 3.5 x 4 x 4.2 cm. Volume: 30.8 mL IMPRESSION: Mild bladder postvoid residual volume for age measuring 73.1 mL. RADIA
== END 2019-04-01 12:45 | disposition home or self-care (01) ==
LOC: DI 12:44
PROVIDERS: ATTEND Family Medicine
DX: N40.0 Benign prostatic hyperplasia without lower urinary tract symptoms (principal)
CPT/HCPCS: 76857

== ENCOUNTER 2020-07-30 09:29 | Outpatient (CLI) | payer MEDICARE, OTHER ==
[2020-07-30 10:14] LABS: ALBUMIN 4.2 g/dL (3.2-5.5); ALBUMIN/GLOBULIN RATIO 1.7 (1.0-2.2); BILIRUBIN,TOTAL 1.1 mg/dL (0.2-1.0); CREATININE 1.2 mg/dL (0.6-1.2); POTASSIUM 4.8 mmol/L (3.5-5.0); TOTAL PROTEIN 6.7 g/dL (6.7-8.2); URIC ACID 7.2 mg/dL (2.6-7.2)
[2020-07-30 10:30] LABS: CHOL/HDL RATIO 3.6 (<5.0); CHOLESTEROL 91 mg/dL; HDL CHOLESTEROL 25 mg/dL; LDL CHOLESTEROL,CALCULATED 32 mg/dL; LDL/HDL RATIO 1.3 (<3.6); TRIGLYCERIDES 170 mg/dL; VLDL CHOLESTEROL 34 mg/dL
== END 2020-07-30 09:30 | disposition home or self-care (01) ==
LOC: LAB 09:29
PROVIDERS: ATTEND Physician Assistant
DX: E78.5 Hyperlipidemia, unspecified (principal); M10.9 Gout, unspecified
CPT/HCPCS: 36415; 80053; 80061; 83721; 84550

== ENCOUNTER 2021-08-26 10:26 | Outpatient (CLI) | payer MEDICARE, OTHER ==
[2021-08-26 10:47] LABS: CALCIUM 9.2 mg/dL (8.5-10.3); CREATININE 1.4 mg/dL (0.6-1.2); POTASSIUM 4.5 mmol/L (3.5-5.0)
[2021-08-26 10:51] LABS: CREATININE,URINE 40.9 mg/dL; MICROALBUM/CREATININE RATIO,UR 26.9 ug/mg (<30.0); MICROALBUMIN,URINE 1.1 mg/dL (0-300.0)
[2021-08-26 11:57] LABS: ESTIMATED AVERAGE GLUCOSE 209 mg/dL (70-100); HEMOGLOBIN A1c% 8.9 % (4.27-6.07)
== END 2021-08-26 10:27 | disposition home or self-care (01) ==
LOC: LAB 10:26
PROVIDERS: ATTEND Registered Nurse
DX: E11.9 Type 2 diabetes mellitus without complications (principal)
CPT/HCPCS: 36415; 80048; 82043; 82570; 83036

== ENCOUNTER 2022-01-07 16:18 | Emergency (ER) | payer MEDICARE, OTHER ==
[2022-01-07 16:51] LABS: BASOPHILS # (AUTO) 0.1 10^3/uL (0.0-0.1); BASOPHILS % (AUTO) 1.2 %; EOSINOPHILS # (AUTO) 0.2 10^3/uL (0.0-0.7); HCT - HEMATOCRIT 40.8 % (42.0-52.0); HGB - HEMOGLOBIN 13.6 g/dL (14.0-18.0); LYMPHOCYTES # (AUTO) 0.6 10^3/uL (1.5-3.5); LYMPHOCYTES % (AUTO) 9.6 %; MEAN CORPUSCULAR HEMOGLOBIN 32.5 pg (27.0-31.0); MEAN CORPUSCULAR HGB CONC 33.3 g/dL (32.0-36.0); MEAN CORPUSCULAR VOLUME 97.6 fL (80.0-94.0); MEAN PLATELET VOLUME 12.1 fL (7.4-11.4); MONOCYTES # (AUTO) 0.6 10^3/uL (0.0-1.0); MONOCYTES % (AUTO) 10.4 %; NEUTROPHILS # (AUTO) 4.5 10^3/uL (1.5-6.6); NEUTROPHILS % (AUTO) 75.5 %; PLT - PLATELET COUNT 65 10^3/uL (130-450); RED BLOOD COUNT 4.18 10^6/uL (4.70-6.10); RED CELL DISTRIBUTION WIDTH 13.1 % (12.0-15.0)
[2022-01-07 17:10] LABS: ALBUMIN 4.8 g/dL (3.2-5.5); ALBUMIN/GLOBULIN RATIO 1.7 (1.0-2.2); BILIRUBIN,TOTAL 0.9 mg/dL (0.2-1.0); CALCIUM 9.3 mg/dL (8.5-10.3); CREATININE 1.4 mg/dL (0.6-1.2); POTASSIUM 4.3 mmol/L (3.5-5.0); TOTAL PROTEIN 7.7 g/dL (6.7-8.2)
[2022-01-07] MEDS ORDERED: SODIUM CHLORIDE 0.9% 1,000 ML IV STA (19:19)
[2022-01-07] MEDS ORDERED: ONDANSETRON 4 MG/2 ML VIAL IVP STA (19:19)
[2022-01-07] MEDS ORDERED: HYDROmorphone 1 MG/ML CARPUJECT IVP STA (19:19)
--- NOTE | 2022-01-07 19:20 | ED Physician Documentation ---
History of Present Illness - Stated complaint Stated Complaint: ABD PX - Chief complaint Chief Complaint: Abd Pain - Additonal information Additional information: 81-year-old male presents emergency department for evaluation of mid abdominal pain that began this afternoon after eating lunch. He describes the pain as severe and he was sweating. It is since subsided but he does have a history of peritonitis, and small bowel obstruction secondary to adhesions and he is concerned that he could have a small bowel obstruction today. He reports that he has had daily bowel movements and quite often uses Metamucil. He is followed by hematology oncology for history of thrombocytopenia as well as anemia. Past medical history also includes hypertension BPH, hyperlipidemia Review of Systems Constitutional: reports: Reviewed and negative Throat: reports: Reviewed and negative Cardiac: reports: Reviewed and negative Respiratory: reports: Reviewed and negative GI: reports: Abdominal Pain, Nausea. denies: Vomiting, Constipation, Diarrhea : reports: Reviewed and negative Skin: reports: Reviewed and negative PD PAST MEDICAL HISTORY - Past Medical History Cardiovascular: Hypertension, High cholesterol Respiratory: Asthma Endocrine/Autoimmune: Type 2 diabetes GI: None : Benign prostate hypertrophy, Kidney stones HEENT: None Musculoskeletal: Osteoarthritis - Past Surgical History General: Appendectomy, Colonoscopy Ortho: Other Cardiovascular: Coronary stent - Present Medications Home Medications: Ambulatory Orders Medication Instructions Recorded Confirmed Albuterol Sulfate [Proventil Hfa 1 puffs PO DAILY PRN 11/18/12 08/11/21 Inhaler] Tamsulosin [Flomax] 0.4 mg PO BID 11/18/12 08/11/21 lisinopriL [Zestril] 20 mg PO DAILY 11/18/12 08/11/21 metFORMIN [Glucophage] 1,000 mg PO BID 08/15/18 08/11/21 Ascorbic Acid [Vitamin C] 1,000 mg PO DAILY 08/16/18 08/11/21 Aspirin [Aspirin EC] 162 mg PO DAILY 08/16/18 08/11/21 Atorvastatin Calcium 40 mg PO DAILY PM 08/16/18 08/11/21 Budesonide [Pulmicort] 1 puffs INH DAILY 08/16/18 08/11/21 Clopidogrel [Plavix] 75 mg PO DAILY 08/16/18 08/11/21 Cyanocobalamin (Vitamin B-12) 1,000 mcg PO DAILY 08/16/18 08/11/21 [Vitamin B-12] Empagliflozin [Jardiance] 25 mg PO DAILY 08/16/18 08/11/21 Fexofenadine HCl [Erica Allergy] 180 mg PO DAILY PRN 08/16/18 08/11/21 Fluticasone [Flonase] 1 puffs PO DAILY PRN 08/16/18 08/11/21 Glucos Sul 2Kcl/MSM/Chond/C/Mn 1 cap PO DAILY 08/16/18 08/11/21 [Glucosamine Chondroitin Cap] Metoprolol Succinate 25 mg PO DAILY 08/16/18 08/11/21 Wheat Dextrin [Benefiber] 1 each PO DAILY #30 packet 08/16/18 08/11/21 amLODIPine [Norvasc] 5 mg PO DAILY PM 08/16/18 08/11/21 Glipizide [Glipizide ER] 5 mg PO BID 08/11/21 08/11/21 - Allergies Allergies/Adverse Reactions: Allergies Allergy/AdvReac Type Severity Reaction Status Date / Time No Known Drug Allergies Allergy Verified 01/07/22 16:34 - Social History Does the pt smoke?: No Smoking Status: Never smoker Does the pt drink ETOH?: No Does the pt have substance abuse?: No - Immunizations Immunizations are current?: No Immunizations: TDAP >10years/unknown - POLST Patient has POLST: No POLST Status: Full Code PD ED PE NORMAL - General General: Alert and oriented X 3, No acute distress - HEENT HEENT: Atraumatic, Moist mucous membranes - Neck Neck: Supple, no meningeal sign - Cardiac Cardiac: RRR, No murmur - Respiratory Respiratory: No respiratory distress, Clear bilaterally - Abdomen Abdomen: Normal bowel sounds, Soft. No: Non tender (Generalized abdominal tenderness mostly mid abdomen. Nonperitoneal. Large lower ventral midline incision well-healed and approximated.), Non distended (Mildly distended with tympany) - Derm Derm: Normal color, Warm and dry - Neuro Neuro: Alert and oriented X 3 Eye Opening: Spontaneous Motor: Obeys Commands Verbal: Oriented GCS Score: 15 Results - Vitals Vitals: Vital Signs - 24 hr 01/07/22 01/07/22 01/07/22 16:30 19:35 20:44 Temperature 36.6 C Heart Rate 65 62 64 Respiratory 14 16 14 Rate Blood Pressure 150/74 H 131/63 H 158/74 H O2 Saturation 97 96 95 Oxygen O2 Source Room air - Labs Labs: Laboratory Tests 01/07/22 01/07/22 01/07/22 16:36 16:46 16:46 WBC 6.0 RBC 4.18 L Hgb 13.6 L Hct 40.8 L MCV 97.6 H MCH 32.5 H MCHC 33.3 RDW 13.1 Plt Count 65 L MPV 12.1 H Neut # (Auto) 4.5 Lymph # (Auto) 0.6 L [place] # (Auto) 0.6 Eos # (Auto) 0.2 Baso # (Auto) 0.1 Absolute Nucleated RBC 0.00 Nucleated RBC % 0.0 Sodium 138 Potassium 4.3 Chloride 102 Carbon Dioxide 26 Anion Gap 10.0 BUN 26 H Creatinine 1.4 H Estimated GFR (MDRD) 49 L Glucose 281 H Calcium 9.3 Total Bilirubin 0.9 AST 31 ALT 51 Alkaline Phosphatase 69 Total Protein 7.7 Albumin 4.8 Globulin 2.9 Albumin/Globulin Ratio 1.7 Lipase 59 H Urine Color YELLOW Urine Clarity CLEAR Urine pH 6.0 Ur Specific [place] 1.010 Urine Protein NEGATIVE Urine Glucose (UA) >=1000 H Urine Ketones NEGATIVE Urine Occult Blood NEGATIVE Urine Nitrite NEGATIVE Urine Bilirubin NEGATIVE Urine Urobilinogen 0.2 (NORMAL) Ur Leukocyte Esterase NEGATIVE Ur Microscopic Review NOT INDICATED Urine Culture Comments NOT INDICATED - Rads (name of study) CT ABD Radiology: Final report received (Cholelithiasis without acute cholecystitis. Cystic lesion within the pancreatic tail. Consider nonemergent pancreatic protocol MRI. Patchy ground black glass opacity within the lung bases likely represent atelectasis. However atypical pneumonia not ruled out.) PD MEDICAL DECISION MAKING - ED course Complexity details: reviewed results, re-evaluated patient, considered differential, d/w patient ED course: 81-year-old male who has a history of diabetes, hypertension hyperlipidemia and chronic kidney disease presents the emergency department for evaluation of mid abdominal pain that began after lunch. This gentleman does have a history of previous appendectomy as well as peritonitis and small bowel obstructions secondary to adhesions. The bowel obstructions have previously been managed conservatively. CBC today was without acute worrisome findings. Electrolytes do show chronic but unchanged kidney disease. No abnormalities with liver function test. His abdominal exam was mildly tender. Nonperitoneal. A CT of the abdomen was completed. We do make note of cholelithiasis without findings of acute cholecystitis. There is a cystic lesion within pancreatic tail that is unchanged from previous imaging. However pancreatic protocol MRI would be advised as an outpatient. There were some patchy groundglass opacities within the lung bases likely representing atelectasis. Atypical pneumonia was not ruled out. The patient has not had any cough, fevers or leukocytosis therefore we will defer any treatment for pneumonia as its not clinically suspected. I did discuss the CT imaging findings with the patient and his . They are very worried about being discharged without a clear diagnosis for the cause of belly pain however he appears remarkably well and has otherwise been stable. He is tolerating sips of clear liquids. I recommend clear liquids for the next 24 hours and slowly advancing the diet. They will follow-up closely with his primary care doctor for further evaluation and to obtained a liver pancreas protocol MRI. Emergent return precautions discussed Departure - Departure Disposition: 01 Home, Self Care Clinical Impression: Pancreatic abnormality, Gallstones Abdominal pain Qualifiers: Abdominal location: unspecified location Qualified Code(s): R10.9 - Unspecified abdominal pain Condition: Stable Record reviewed to determine appropriate education?: Yes Instructions: ED Abdominal Pain Unkn Cause Male Comments: Christopher came to the emergency department today because he developed some pain across his mid abdomen after eating lunch. The labs today show no worrisome findings with regards to his blood count. He does have some chronic kidney disease which is stable and unchanged. The CT does show some gallstones but no findings to suggest acute cholecystitis. We do make note of a cystic lesion near the pancreatic tail that is unchanged from previous imaging. However this should be discussed with his primary care doctor. He should be referred for an outpatient pancreatic protocol MRI for further evaluation of this. We are not certain what the cause of the abdominal pain was today. I do recommend clear liquids for the next 12 to 24 hours. As pain is gently improving he can begin advancing his diet with bananas, rice, applesauce and toast. He should return immediately to the ER should he develop uncontrolled vomiting, black or bloody stools, severe chest pain or any shortness of air.
[2022-01-07 19:26] LABS: BILIRUBIN,URINE NEGATIVE (NEGATIVE); GLUCOSE, URINE (UA) >=1000 mg/dL (NEGATIVE); KETONES,URINE (UA) NEGATIVE (NEGATIVE); LEUKOCYTE ESTERASE, URINE NEGATIVE (NEGATIVE); NITRITE,URINE NEGATIVE (NEGATIVE); OCCULT BLOOD,URINE NEGATIVE (NEGATIVE); PROTEIN,URINE NEGATIVE (NEGATIVE); UROBILINOGEN,URINE 0.2 (NORMAL) E.U./dL (NORMAL)
[2022-01-07 19:27] LABS: CLARITY,URINE CLEAR (CLEAR)
--- NOTE | 2022-01-07 21:08 | CT Report ---
PROCEDURE: ABDOMEN/PELVIS WO INDICATIONS: epigastric pain TECHNIQUE: Noncontrast 5 mm thick sections acquired from the diaphragms to the symphysis. 5 mm coronal and sagi ttal reformats were then performed. For radiation dose reduction, the following was used: automated exposure control, adjustment of mA and/or kV according to patient size. COMPARISON: CT abdomen pelvis 08/16/2018. FINDINGS: Image quality: Excellent. Lung bases:There are patchy indistinct groundglass opacities within the lung bases which are nonspec ific but likely represent atelectasis.. Heart: Heart size is enlarged. ABDOMEN: Liver:Noncontrast evaluation of the liver demonstrates no mass lesion. Gallbladder:Multiple clustered calcified gallstones are demonstrated within the gallbladder. No gall bladder wall thickening or pericholecystic fluid. Biliary ducts: No biliary ductal dilatation. Pancreas:There is a cystic lesion within the pancreatic tail measuring approximately 2.0 x 1.2 cm in transverse dimension on series 3 image 27 which appears similar in size compared to the prior study given differences in technique. There is also suspected mild dilatation of the pancreatic duct within the pancreatic body but evaluation is limited in the absence of intravenous contrast. No peripancrea tic fat stranding or fluid collections. Spleen: Normal in size. Adrenal Glands: No adrenal nodules. Kidneys and Ureters: No hydronephrosis. Stomach and Bowel: Stomach, small bowel loops, and colon are normal in caliber and wall thickness. N o pericecal inflammatory changes to suggest appendicitis. Peritoneum: No abnormal intraperitoneal fluid. No free air. Ventral Wall: No hernia. Abdominal Nodes: No retroperitoneal or mesenteric adenopathy by size criteria. Vessels: Aorta and inferior vena cava are normal in size. PELVIS: Pelvic Organs:Multiple clustered calcifications are demonstrated in the prostate measures are nonspe cific but likely dystrophic. Bladder: Unremarkable. Pelvic Nodes: No enlarged lymph nodes. Miscellaneous: No inguinal hernias are seen. Bones: Visualized osseous structures demonstrate no suspicious focal lesions. IMPRESSION: 1. Cholelithiasis without CT evidence of acute cholecystitis. 2. Cystic lesion within the pancreatic tail and suspected mild dilatation of the pancreatic duct in t he pancreatic body appears similar to the prior study given differences in technique. The findings ma y reflect possible intraductal papillary mucinous neoplasms (IPMN) or mucinous cystic neoplasms but a re incompletely characterized on the current study. Consider follow-up nonemergent evaluation with a pancreatic protocol MRI if clinically indicated. 3. Patchy ground glass opacities within the lung bases likely represent atelectasis. However, the dif ferential includes pulmonary edema, atypical pneumonia, or inflammatory process such as hypersensitiv ity pneumonitis. Reviewed by: Austyn Hubbard MD on 01/07/2022 9:07 PM PST Approved by: Austyn Hubbard MD on 01/07/2022 9:07 PM PST Station ID: [id number]
[2022-01-07] MEDS ORDERED: PROCHLORPERAZINE 10 MG/2 ML VIAL IVP STA (21:48)
[2022-01-07] MEDS ORDERED: ONDANSETRON ODT 4 MG Prepack 2 TL PRN (23:12)
[2022-01-07 23:26] VITALS: BP 145/65
--- NOTE | 2022-01-26 10:52 | ED Physician Documentation ---
ED Addendum - Addendum Addendum: 01/26/22 10:50 Patient was ready for discharge after evaluation, testing, and discharge planning by BENITA Mcguire. However, patient vomited just prior to being discharged and thus he is held in ED until he can tolerate PO. On my reevaluation, he is in NAD and tolerating PO. He is comfortable with d/c home. The test results, diagnoses, discharge plan, and return precautions had all been reviewed with patient by BENITA Mcguire. Patient requests zofran to take home and he is given a take-home pack of zofran which I ordered.
== END 2022-01-07 23:20 | disposition home or self-care (01) ==
LOC: ED 16:18
DX: K80.20 Calculus of gallbladder without cholecystitis without obstruction (principal); R94.8 Abnormal results of function studies of other organs and systems
CPT/HCPCS: 36415; 74176; 80053; 81003; 83690; 85025; 96374; 96375; 99284; J1170; 81001; 87086

== ENCOUNTER 2022-03-25 08:37 | Emergency (ER) | payer MEDICARE, OTHER ==
[2022-03-25 09:14] LABS: BILIRUBIN,URINE NEGATIVE (NEGATIVE); CLARITY,URINE CLEAR (CLEAR); GLUCOSE, URINE (UA) >=1000 mg/dL (NEGATIVE); KETONES,URINE (UA) NEGATIVE (NEGATIVE); LEUKOCYTE ESTERASE, URINE NEGATIVE (NEGATIVE); NITRITE,URINE NEGATIVE (NEGATIVE); OCCULT BLOOD,URINE NEGATIVE (NEGATIVE); PROTEIN,URINE NEGATIVE (NEGATIVE); UROBILINOGEN,URINE 0.2 (NORMAL) E.U./dL (NORMAL)
[2022-03-25 09:29] LABS: BASOPHILS # (AUTO) 0.1 10^3/uL (0.0-0.1); BASOPHILS % (AUTO) 0.8 %; EOSINOPHILS # (AUTO) 0.1 10^3/uL (0.0-0.7); HCT - HEMATOCRIT 40.4 % (42.0-52.0); HGB - HEMOGLOBIN 13.4 g/dL (14.0-18.0); LYMPHOCYTES # (AUTO) 0.5 10^3/uL (1.5-3.5); LYMPHOCYTES % (AUTO) 7.5 %; MEAN CORPUSCULAR HEMOGLOBIN 32.2 pg (27.0-31.0); MEAN CORPUSCULAR HGB CONC 33.2 g/dL (32.0-36.0); MEAN CORPUSCULAR VOLUME 97.1 fL (80.0-94.0); MEAN PLATELET VOLUME 11.6 fL (7.4-11.4); MONOCYTES # (AUTO) 0.5 10^3/uL (0.0-1.0); MONOCYTES % (AUTO) 7.7 %; NEUTROPHILS % (AUTO) 81.5 %; PLT - PLATELET COUNT 65 10^3/uL (130-450); RED BLOOD COUNT 4.16 10^6/uL (4.70-6.10); RED CELL DISTRIBUTION WIDTH 13.1 % (12.0-15.0); WHITE BLOOD COUNT 6.1 x10^3/uL (4.8-10.8)
[2022-03-25 09:42] LABS: ALBUMIN 4.3 g/dL (3.2-5.5); ALBUMIN/GLOBULIN RATIO 1.6 (1.0-2.2); BILIRUBIN,TOTAL 1.2 mg/dL (0.2-1.0); CALCIUM 8.6 mg/dL (8.5-10.3); CREATININE 1.3 mg/dL (0.6-1.2); POTASSIUM 4.1 mmol/L (3.5-5.0)
--- NOTE | 2022-03-25 10:12 | ED Physician Documentation ---
PD HPI ABD PAIN - Stated complaint Stated Complaint: ABD PX/VOMIT - Chief complaint Chief Complaint: Abd Pain - History obtained from History obtained from: Patient - History of Present Illness Timing - onset: How many days ago (he has had several days of left flank pain, unchanged with movement nor position. Feeling similar to prior kidney stones. It increased significantly last night into today.) Timing - details: Gradual onset (with marked worsening last night into today.), Still present Quality: Cramping, Aching, Pain Location: LLQ Radiation: Left flank Improved by: No: Eating, Laying still, Position Worsened by: No: Eating, Moving, Breathing, Position, Palpation Associated symptoms: Nausea, Loss of appetite. No: Fever, Vomiting, Diarrhea, Constipation, Dysuria Similar symptoms before: Diagnosis (feels similar to few prior ureteral kidney stones, all have passed without needing intervention.) Recently seen: Not recently seen Review of Systems Constitutional: denies: Fever, Chills Nose: denies: Rhinorrhea / runny nose, Congestion Throat: denies: Sore throat Cardiac: denies: Chest pain / pressure, Palpitations Respiratory: denies: Dyspnea, Cough GI: reports: Abdominal Pain, Nausea. denies: Vomiting, Diarrhea : denies: Dysuria Skin: denies: Rash, Lesions Musculoskeletal: denies: Extremity swelling Neurologic: denies: Focal weakness, Numbness PD PAST MEDICAL HISTORY - Past Medical History Cardiovascular: Hypertension, High cholesterol Respiratory: Asthma Endocrine/Autoimmune: Type 2 diabetes GI: None : Benign prostate hypertrophy, Kidney stones HEENT: None Musculoskeletal: Osteoarthritis - Past Surgical History General: Appendectomy, Colonoscopy Ortho: Other Cardiovascular: Coronary stent - Present Medications Home Medications: Ambulatory Orders Medication Instructions Recorded Confirmed Albuterol Sulfate [Proventil Hfa 1 puffs PO DAILY PRN 11/18/12 02/11/22 Inhaler] Tamsulosin [Flomax] 0.4 mg PO BID 11/18/12 02/11/22 lisinopriL [Zestril] 20 mg PO DAILY 11/18/12 02/11/22 metFORMIN [Glucophage] 1,000 mg PO BID 08/15/18 02/11/22 Ascorbic Acid [Vitamin C] 1,000 mg PO DAILY 08/16/18 02/11/22 Aspirin [Aspirin EC] 162 mg PO DAILY 08/16/18 02/11/22 Atorvastatin Calcium 40 mg PO DAILY PM 08/16/18 02/11/22 Budesonide [Pulmicort] 1 puffs INH DAILY 08/16/18 02/11/22 Clopidogrel [Plavix] 75 mg PO DAILY 08/16/18 02/11/22 Cyanocobalamin (Vitamin B-12) 1,000 mcg PO DAILY 08/16/18 02/11/22 [Vitamin B-12] Empagliflozin [Jardiance] 25 mg PO DAILY 08/16/18 02/11/22 Fexofenadine HCl [Erica Allergy] 180 mg PO DAILY PRN 08/16/18 02/11/22 Fluticasone [Flonase] 1 puffs PO DAILY PRN 08/16/18 02/11/22 Glucos Sul 2Kcl/MSM/Chond/C/Mn 1 cap PO DAILY 08/16/18 02/11/22 [Glucosamine Chondroitin Cap] Metoprolol Succinate 25 mg PO DAILY 08/16/18 02/11/22 Wheat Dextrin [Benefiber] 1 each PO DAILY #30 packet 08/16/18 02/11/22 amLODIPine [Norvasc] 5 mg PO DAILY PM 08/16/18 02/11/22 Glipizide [Glipizide ER] 5 mg PO BID 08/11/21 02/11/22 Docusate Sodium 100Mg Capsule 100 mg PO DAILY #15 cap 03/25/22 [Colace 100Mg Capsule] HYDROcod/ACETAM 5/325 [[place] 5/325] 1 ea PO Q6H PRN #12 tablet 03/25/22 Naproxen 500 mg PO BID 7 Days #14 tab 03/25/22 - Allergies Allergies/Adverse Reactions: Allergies Allergy/AdvReac Type Severity Reaction Status Date / Time No Known Drug Allergies Allergy Verified 03/25/22 08:51 - Social History Does the pt smoke?: No Smoking Status: Never smoker Does the pt drink ETOH?: No Does the pt have substance abuse?: No - Immunizations Immunizations are current?: No Immunizations: TDAP >10years/unknown - POLST Patient has POLST: No POLST Status: Full Code PD ED PE NORMAL - Vitals Vital signs reviewed: Yes - General General: Alert and oriented X 3, Well developed/nourished, Other (appears in considerable pain left flank. ) - Cardiac Cardiac: RRR, No murmur - Respiratory Respiratory: Clear bilaterally - Abdomen Abdomen: Normal bowel sounds, Soft, Non distended - Male Male : Deferred - Rectal Rectal: Deferred - Back Back: No spinal TTP, Other (left flank tender to percussion. ) - Derm Derm: Normal color, Warm and dry, No rash - Extremities Extremities: No calf tenderness / cord, Other (1+ edema in both lower legs without tednerness. ) - Neuro Neuro: Alert and oriented X 3, No motor deficit, No sensory deficit, Normal speech Results - Vitals Vitals: Vital Signs - 24 hr 03/25/22 03/25/22 03/25/22 08:49 10:13 12:09 Temperature 36.3 C L Heart Rate 62 62 66 Respiratory 16 18 18 Rate Blood Pressure 138/55 H 154/66 H 183/90 H O2 Saturation 97 100 99 Oxygen O2 Source Room air - Labs Labs: Laboratory Tests 03/25/22 03/25/22 03/25/22 08:53 09:21 09:21 WBC 6.1 RBC 4.16 L Hgb 13.4 L Hct 40.4 L MCV 97.1 H MCH 32.2 H MCHC 33.2 RDW 13.1 Plt Count 65 L MPV 11.6 H Neut # (Auto) 5.0 Lymph # (Auto) 0.5 L [place] # (Auto) 0.5 Eos # (Auto) 0.1 Baso # (Auto) 0.1 Absolute Nucleated RBC 0.00 Nucleated RBC % 0.0 Sodium 138 Potassium 4.1 Chloride 103 Carbon Dioxide 24 Anion Gap 11.0 BUN 23 H Creatinine 1.3 H Estimated GFR (MDRD) 53 L Glucose 214 H Calcium 8.6 Total Bilirubin 1.2 H AST 21 ALT 31 Alkaline Phosphatase 48 Total Protein 7.0 Albumin 4.3 Globulin 2.7 Albumin/Globulin Ratio 1.6 Lipase 88 H Urine Color YELLOW Urine Clarity CLEAR Urine pH 6.0 Ur Specific [place] 1.015 Urine Protein NEGATIVE Urine Glucose (UA) >=1000 H Urine Ketones NEGATIVE Urine Occult Blood NEGATIVE Urine Nitrite NEGATIVE Urine Bilirubin NEGATIVE Urine Urobilinogen 0.2 (NORMAL) Ur Leukocyte Esterase NEGATIVE Ur Microscopic Review NOT INDICATED Urine Culture Comments NOT INDICATED - Rads (name of study) abd/pelvic CT Radiology: Prelim report reviewed, EMP read indepedently (no kidney/urteral stones nor hydronephrosis. No other acute findings to explain the pain. ), See rad report PD Medical Decision Making - ED course Complexity details: considered differential (his pain sounds very much like kidney stone pain and it feels similar to prior stones per patient. However on cT, he does not have stone present. He is feeling much improved with meds, and was feeling beter prior to CT. Consider had stone that passed prior to CT. or other cause not yet determined. ), d/w patient, d/w family (spouse) Departure - Departure Disposition: Home, Self Care Clinical Impression: Acute left flank pain Condition: Stable Record reviewed to determine appropriate education?: Yes Instructions: ED Flank Pain Uncertain Cause Follow-Up: Denisse España ARNP [Primary Care Provider] - Prescriptions: Docusate Sodium 100Mg Capsule [Colace 100Mg Capsule] 100 mg PO DAILY #15 cap Naproxen 500 mg PO BID 7 Days #14 tab HYDROcod/ACETAM 5/325 [[place] 5/325] 1 ea PO Q6H PRN #12 tablet PRN Reason: Pain Comments: Your CT scan does not show any stone or other acute abnormalities at this time. Is possible you had a stone that passed earlier and still having some residual pain from that. Other considerations would be muscular pain or intestinal pain. At this point try to stay well-hydrated. Continue usual medications. I would suggest adding an anti-inflammatory such as naproxen twice daily with food for the next several days like 3 to 5 days. We do not want to continue it too long so as to not affect your stomach or such. However would likely be beneficial in the short-term. To that add Tylenol every 4-6 hours if needed for pain or hydrocodone if needed for worse pain. We would not want you to become constipated from the pain medicine so consider docusate stool softener daily for the next several days to week. Follow-up with your primary care if not resolved over the next few days. I would anticipate this getting better if it was a recently passed stone with still some pain or if it was muscular pain etc. At this point no other obvious cause. I sent your prescriptions to [facility] in [place]. I am prescribing a short course of narcotic pain medication for you. These are potentially dangerous and addictive medications that should be used carefully. These medications may constipate you. Take an [id number] stool softener such as docusate twice daily with plenty of water while taking these medications. If you go 24 hours without a bowel movement, take [id number] [id number], per package instructions. Do not drink or drive while taking these medications. If you received narcotic or sedating medications while in the emergency department do not drive for 24 hours. Store this medication in a safe, secure place and out of reach of children. It is a violation of federal law to give or sell this medication to another person or to use in a manner other than prescribed. The ED will not refill narcotic prescriptions, including prescriptions lost or stolen. You can dispose of unwanted medications at the [facility]'s office or at several pharmacies such as [facility]. Discharge Date/Time: 03/25/22 12:34
[2022-03-25] MEDS ORDERED: KETOROLAC 15 MG/ML VIAL IVP STA (10:23)
[2022-03-25] MEDS ORDERED: HYDROmorphone 1 MG/ML CARPUJECT IVP STA (10:23)
[2022-03-25] MEDS ORDERED: ONDANSETRON 4 MG/2 ML VIAL IVP STA (10:46)
[2022-03-25] MEDS ORDERED: iohexoL-300 100 ML VIAL ONE (10:51)
--- NOTE | 2022-03-25 11:45 | CT Report ---
PROCEDURE: ABDOMEN/PELVIS W INDICATIONS: left flank pain 6 days, worse CONTRAST: 100ml Omnipaque 300 TECHNIQUE: After the administration of IV contrast, 5 mm thick sections acquired from the diaphragms to the symp hysis. 5 mm thick coronal and sagittal reformats were acquired. For radiation dose reduction, the f ollowing was used: automated exposure control, adjustment of mA and/or kV according to patient size. COMPARISON: 01/07/2022 FINDINGS: Image quality: Good Lower chest: Basal lung disease and reticulation/scarring, similar to prior. There may also be ground glass opacities. Findings were also seen previously. Coronary artery disease. No hiatal hernia. Borde rline cardiomegaly. Solid organs: Liver is unremarkable. Cholelithiasis. No pathologic biliary dilation. Pancreatic tail cystic lesion again seen, similar, measuring up to 2.6 x 1.4 cm. There is some associated pancreatic ductal dilation. No splenomegaly. No adrenal nodules. No hydronephrosis. Vessels and lymph nodes: No abdominal aortic aneurysm. The main portal vein is patent. No pathologic adenopathy by size criteria. Bowel and peritoneum: No small bowel obstruction. No pathologic ascites. Body wall: Tiny fat-containing focal hernia suspected. Pelvis: Not well evaluated. Prostate calcifications and borderline enlargement. Bladder is unremarkab le. No radiopaque calculi in the bladder. Bones: Degenerative changes. No acute or suspicious osseous abnormality. IMPRESSION: No acute abdominopelvic pathology. Cholelithiasis. Other stable/incidental findings are described abo ve. Of note, please consider high-resolution chest CT follow-up for the pulmonary findings if there are c orresponding PFT abnormalities. Please consider MRI pancreas follow-up also for the above pancreatic cystic lesion. Reviewed by: Brian Mitchell MD on 03/25/2022 11:44 AM PST Approved by: Brian Mitchell MD on 03/25/2022 11:44 AM PST Station ID: [id number]
[2022-03-25 12:10] VITALS: BP 183/90
[2022-03-25] MEDS ORDERED: iohexoL-300 100 ML VIAL IVP ONE (16:52)
== END 2022-03-25 12:34 | disposition home or self-care (01) ==
LOC: ED 08:37
DX: R10.32 Left lower quadrant pain (principal)
CPT/HCPCS: 36415; 74177; 80053; 81003; 83690; 85025; 96374; 96375; 99283; 99284; J1170; Q9967; 81001; 87086

== ENCOUNTER 2023-01-05 10:31 | Outpatient (CLI) | payer MEDICARE, OTHER | END 2023-01-05 10:32 | disposition home or self-care (01) | LOC: MAC.INF 10:31 → NS 10:32 | PROVIDERS: ATTEND Registered Nurse | DX: E11.9 Type 2 diabetes mellitus without complications (principal); E78.2 Mixed hyperlipidemia; E66.8 Other obesity; Z71.3 Dietary counseling and surveillance; Z68.35 Body mass index [BMI] 35.0-35.9, adult; Z71.89 Other specified counseling | CPT/HCPCS: 97802 ==

== ENCOUNTER 2023-01-11 10:04 | Outpatient (CLI) | payer MEDICARE, OTHER ==
--- NOTE | 2023-01-11 15:09 | Ultrasound Report ---
PROCEDURE: Carotid Doppler Complete INDICATIONS: Syncope TECHNIQUE: Color and pulse Doppler interrogation was performed of both carotid systems, with image documentation and velocity measurements. COMPARISON: Carotid ultrasound 05/24/2018. FINDINGS: Right side: Brachial blood pressure: 152/79 mm Hg. Common carotid artery peak systolic velocity: 56 cm/sec. Internal carotid artery peak systolic velocity: 85 cm/sec. Internal carotid artery end diastolic velocity: 18 cm/sec. External carotid artery peak systolic velocity: 109 cm/sec. ICA/CCA peak systolic ratio: 1.5. Bhat scale imaging description: Moderate atherosclerotic plaque. Percent internal carotid artery stenosis: Less than 50 percent stenosis. Vertebral artery: Flow direction is antegrade. Left side: Brachial blood pressure: 135/71 mm Hg. Common carotid artery peak systolic velocity: 96 cm/sec. Internal carotid artery peak systolic velocity: 100 cm/sec. Internal carotid artery end diastolic velocity: 23 cm/sec. External carotid artery peak systolic velocity: 1:15 cm/sec. ICA/CCA peak systolic ratio: 1.04. Bhat scale imaging description: Moderate atherosclerotic plaque. Percent internal carotid artery stenosis: Less than 50% stenosis.. Vertebral artery: Flow direction is antegrade. IMPRESSION: 1. In the right internal carotid artery, there is less than 50 percent stenosis based on peak systoli c velocity criteria. 2. In the left internal carotid artery, there is less than 50 percent stenosis based on peak systolic velocity criteria. 3. Antegrade blood flow within the right vertebral artery. 4. Antegrade blood flow within the left vertebral artery. The estimate of stenosis included in the report of the imaging study was calculated using the [facility]-end orsed standards of carotid artery stenosis. Reviewed by: Guy Lynn MD on 01/11/2023 3:08 PM PST Approved by: Guy Lynn MD on 01/11/2023 3:08 PM PST Station ID: [id number]
== END 2023-01-11 10:05 | disposition home or self-care (01) ==
LOC: DI 10:04
PROVIDERS: ATTEND Physician Assistant
DX: R55 Syncope and collapse (principal); I65.23 Occlusion and stenosis of bilateral carotid arteries
CPT/HCPCS: 93880

== ENCOUNTER 2023-10-01 13:21 | Emergency (ER) | payer MEDICARE, OTHER ==
[2023-10-01 13:38] VITALS: BP 160/64; O2SAT 96
--- NOTE | 2023-10-01 13:48 | ED Physician Documentation ---
PD HPI UPPER EXT INJURY - Stated complaint Stated Complaint: R HAND PX/SWELLING - Chief complaint Chief Complaint: Ext Problem - History obtained from History obtained from: Patient, Family - Additonal information Additional information: 83-year-old gentleman with history of diabetes presents with painful right hand swelling that came on 3 days ago without specific trauma. His notes that that day prior to the onset of the swelling he was at the hearing test and did have to do repetitive motions with the right hand when he heard of the sound. Subsequently the hand felt warm and hot. He doubts any bug bites. He does have a history of gout in a more classic spot (podagra). There is no fever. He went to the clinic and there was a concern for DVT although it is mostly the dorsum of the hand and was referred here for further evaluation and treatment. PD PAST MEDICAL HISTORY - Past Medical History Past Medical History: Yes Cardiovascular: Hypertension, High cholesterol Respiratory: Asthma Neuro: None Endocrine/Autoimmune: Type 2 diabetes GI: None : Benign prostate hypertrophy, Kidney stones HEENT: None Musculoskeletal: Osteoarthritis - Past Surgical History Past Surgical History: Yes General: Appendectomy, Colonoscopy Ortho: Other Cardiovascular: Coronary stent - Present Medications Home Medications: Ambulatory Orders Medication Instructions Recorded Confirmed Albuterol Sulfate [Proventil Hfa 1 puffs PO DAILY PRN 11/18/12 07/05/23 Inhaler] Tamsulosin [Flomax] 0.4 mg PO BID 11/18/12 07/05/23 lisinopriL [Zestril] 20 mg PO DAILY 11/18/12 07/05/23 metFORMIN [Glucophage] 1,000 mg PO BID 08/15/18 07/05/23 Ascorbic Acid [Vitamin C] 1,000 mg PO DAILY 08/16/18 07/05/23 Aspirin [Aspirin EC] 81 mg PO DAILY 08/16/18 07/05/23 Atorvastatin Calcium 40 mg PO DAILY PM 08/16/18 07/05/23 Budesonide [Pulmicort] 1 puffs INH DAILY 08/16/18 07/05/23 Cyanocobalamin (Vitamin B-12) 1,000 mcg PO DAILY 08/16/18 07/05/23 [Vitamin B-12] Empagliflozin [Jardiance] 25 mg PO DAILY 08/16/18 07/05/23 Fexofenadine HCl [Erica Allergy] 180 mg PO DAILY PRN 08/16/18 07/05/23 Fluticasone [Flonase] 1 spray NS DAILY PRN 08/16/18 07/05/23 Glucos Sul 2Kcl/MSM/Chond/C/Mn 1 cap PO QPM 08/16/18 07/05/23 [Glucosamine Chondroitin Cap] Metoprolol Succinate 12.5 mg PO DAILY 08/16/18 07/05/23 amLODIPine [Norvasc] 5 mg PO DAILY PM 08/16/18 07/05/23 cephALEXin [Keflex] 500 mg PO Q6H #28 cap 10/01/23 - Allergies Allergies/Adverse Reactions: Allergies Allergy/AdvReac Type Severity Reaction Status Date / Time No Known Drug Allergies Allergy Verified 10/01/23 13:31 - Social History Does the pt smoke?: No Smoking Status: Never smoker Does the pt drink ETOH?: No Does the pt have substance abuse?: No - Immunizations Immunizations are current?: No Immunizations: TDAP >10years/unknown - POLST Patient has POLST: No POLST Status: Full Code PD ED PE NORMAL - Vitals Vital signs reviewed: Yes - General General: Alert and oriented X 3, No acute distress - Extremities Extremities: Other (See MDM text box too small) - Neuro Neuro: Alert and oriented X 3, Normal speech Results - Vitals Vitals: Vital Signs - 24 hr 10/01/23 10/01/23 13:31 15:00 Temperature 36.8 C 36.8 C Heart Rate 65 65 Respiratory 16 16 Rate Blood Pressure 160/64 H 160/64 H O2 Saturation 96 96 Oxygen O2 Source Room air - Labs Labs: Laboratory Tests 10/01/23 10/01/23 10/01/23 14:05 14:05 14:05 WBC 6.9 RBC 3.86 L Hgb 12.5 L Hct 37.4 L MCV 96.9 H MCH 32.4 H MCHC 33.4 RDW 13.0 Plt Count 76 L MPV 11.5 H Neut # (Auto) 5.5 Lymph # (Auto) 0.5 L [place] # (Auto) 0.6 Eos # (Auto) 0.2 Baso # (Auto) 0.1 Absolute Nucleated RBC 0.00 Nucleated RBC % 0.0 ESR 20 Sodium 139 Potassium 4.4 Chloride 105 Carbon Dioxide 27 Anion Gap 7.0 BUN 20 Creatinine 1.4 H Estimated GFR (MDRD) 49 L Glucose 256 H Uric Acid 6.4 Calcium 8.9 Total Bilirubin 0.9 AST 14 ALT 18 Alkaline Phosphatase 49 C-Reactive Protein 1.6 H Total Protein 6.1 L Albumin 4.0 Globulin 2.1 Albumin/Globulin Ratio 1.9 PD Medical Decision Making - ED course ED course: RUE exam:Warmth and redness across the dorsum of the hand mostly in the area of the second and third metacarpals. He has limited range of motion of the hand and swelling, and inability to completely make a fist. There is no tenderness over the flexor side of the hand. Bedside ultrasound demonstrates no clot in the dorsum of the hand with compressible veins and no obvious effusions in the second and third MCPs. He presents with swelling of the dorsum of the right hand with redness. He had a history of gout, but his uric acid level is normal and it seems to span mul tiple joints, not a single joint so I think that is less likely. Infection and inflammation are also considered, less likely with the normal white count, ESR and minimal elevation in CRP. He does have stable depressed renal function and hyperglycemia compared to prior labs. This point could be a localized inflammatory reaction versus cellulitis, will treat for that. Departure - Departure Disposition: 01 Home, Self Care Clinical Impression: Cellulitis of right hand Condition: Good Record reviewed to determine appropriate education?: Yes Instructions: Cellulitis Dc Prescriptions: cephALEXin [Keflex] 500 mg PO Q6H #28 cap Comments: I suspect you have a mild infection of the dorsum of your hand. There is no evidence of abnormality on the x-ray other than some arthritis which was present on prior x-rays of your hand, your labs demonstrate stable but mildly low renal function, elevated blood sugar 256. [facility] [place]. Call your doctor to arrange a follow-up appointment, make the next available appointment. In the interim, return anytime if worse or if new symptoms develop. Forms: PCP List Discharge Date/Time: 10/01/23 15:00
[2023-10-01 14:13] LABS: BASOPHILS # (AUTO) 0.1 10^3/uL (0.0-0.1); BASOPHILS % (AUTO) 0.7 %; EOSINOPHILS # (AUTO) 0.2 10^3/uL (0.0-0.7); EOSINOPHILS % (AUTO) 3.3 %; HCT - HEMATOCRIT 37.4 % (42.0-52.0); HGB - HEMOGLOBIN 12.5 g/dL (14.0-18.0); LYMPHOCYTES # (AUTO) 0.5 10^3/uL (1.5-3.5); LYMPHOCYTES % (AUTO) 7.4 %; MEAN CORPUSCULAR HEMOGLOBIN 32.4 pg (27.0-31.0); MEAN CORPUSCULAR HGB CONC 33.4 g/dL (32.0-36.0); MEAN CORPUSCULAR VOLUME 96.9 fL (80.0-94.0); MEAN PLATELET VOLUME 11.5 fL (7.4-11.4); MONOCYTES # (AUTO) 0.6 10^3/uL (0.0-1.0); MONOCYTES % (AUTO) 9.3 %; NEUTROPHILS # (AUTO) 5.5 10^3/uL (1.5-6.6); PLT - PLATELET COUNT 76 10^3/uL (130-450); RED BLOOD COUNT 3.86 10^6/uL (4.70-6.10); WHITE BLOOD COUNT 6.9 x10^3/uL (4.8-10.8)
[2023-10-01 14:39] LABS: ALBUMIN/GLOBULIN RATIO 1.9 (1.0-2.2); BILIRUBIN,TOTAL 0.9 mg/dL (0.2-1.0); CALCIUM 8.9 mg/dL (8.5-10.3); CREATININE 1.4 mg/dL (0.6-1.3); CRP - C-REACTIVE PROTEIN 1.6 mg/dL (<0.5); POTASSIUM 4.4 mmol/L (3.5-4.5); TOTAL PROTEIN 6.1 g/dL (6.4-8.9); URIC ACID 6.4 mg/dL (4.4-7.6)
[2023-10-01] MEDS: cephALEXin 250 MG CAPSULE PO STA (14:54)
--- NOTE | 2023-10-01 15:30 | XRAY Report ---
PROCEDURE: Hand 3+V RT INDICATIONS: hand pain TECHNIQUE: 3 views of the hand(s) acquired. COMPARISON: None. FINDINGS: Bones: No fractures or dislocations. Diffuse intramedullary degeneration, most pronounced involving the first interphalangeal joint. No suspicious bony lesions. Juxta-articular lucencies are noted. Soft tissues: No suspicious soft tissue calcifications or masses. Atherosclerotic vascular ossificat ions. IMPRESSION: No acute bony abnormality. Diffuse interphalangeal joint of degeneration. Juxta-articular lucencies a re present and may represent subchondral cystic change versus erosions. Reviewed by: Hernan Echevarria MD on 10/01/2023 3:29 PM PDT Approved by: Hernan Echevarria MD on 10/01/2023 3:29 PM PDT Station ID: [id number]
== END 2023-10-01 15:00 | disposition home or self-care (01) ==
LOC: ED 13:21
DX: L03.113 Cellulitis of right upper limb (principal)
CPT/HCPCS: 36415; 73130; 80053; 84550; 85025; 85651; 86140; 99283; 99284; A9270